=== PATIENT | male | born 1965 | race Caucasian/White ===

== ENCOUNTER 2024-05-28 13:35 | Observation (INO) | payer BC, SELFPAY ==
[2024-05-28] VITALS (7 sets, daily range): BP systolic 104–198; BP diastolic 61–108; PULSE 66–90; RESP 12–18; TEMP 36.7–37.1; O2SAT 96–99; BMI 28.3; BMI 29.2
--- NOTE | ~2024-05-28 | CT_ITS ---
EXAMINATION: CT ANGIOGRAM CHEST CLINICAL INFORMATION: Chest pain, ?dissection COMPARISON: None. TECHNIQUE: Multiple axial images were obtained through the chest after the administration of 70 mL of intravenous Omnipaque 350. Images were evaluated on independent dedicated 3-D workstation and 3-D images were reconstructed with concurrent radiologist supervision and subsequently interpreted. This CT examination was performed using dose optimization techniques as appropriate, variously including the following: *Automated exposure control *Adjustment of mA and/or kV according to patient size (this includes techniques or standardized protocols for targeted exams where dose is matched to indication/reason for exam; i.e. extremities or head) *Use of iterative reconstruction technique DLP: 397 mGy-cm FINDINGS: VASCULAR FINDINGS: Heart: Normal in size. Mild coronary artery calcifications. Aorta: Cardiac motion limits the evaluation of the aortic root and ascending thoracic aorta. Within the limitations of the study, no evidence of dissection or aneurysm of the thoracic aorta. No penetrating atheromatous ulcer. There is a three-vessel aortic arch. The origins of the arch vessels are widely patent and the vessels are normal in caliber. NONVASCULAR FINDINGS: Thyroid Gland: The visualized thyroid gland is normal. Lungs: 5 mm subpleural pulmonary nodule in the right lower lobe (5:321). 3 mm pulmonary nodule in the right lower lobe (5.277). No airspace consolidation. No suspicious nodules or masses. Airways: The trachea and central bronchi are normal. Pleura: No pleural effusion. No pneumothorax. Lymph Nodes: No supraclavicular, axillary, mediastinal or hilar lymphadenopathy is identified. Chest Wall: No chest wall mass. Upper Abdomen: The visualized upper abdomen is unremarkable. Soft Tissues/Musculoskeletal: Multilevel degenerative changes of the thoracic spine. CT/CT angio chest aorta IMPRESSION: 1. No dissection or aneurysm of the thoracic aorta. No acute finding to suggest etiology for chest pain. 2. Two sub-6 mm pulmonary nodules in the right lower lobe. According to the UPDATED 2017 Fleischner Society recommendations, the advised follow-up imaging for solid nodules <6 mm in the middle/lower lobes is no routine follow up. Fleischner guidelines were followed.
--- NOTE | 2024-05-28 13:37 | ECG_ITS ---
Test Reason : CHEST PAIN Blood Pressure : / mmHG Vent. Rate : 093 BPM Atrial Rate : 093 BPM P-R Int : 140 ms QRS Dur : 092 ms QT Int : 350 ms P-R-T Axes : 026 012 039 degrees QTc Int : 435 ms Normal sinus rhythm Normal ECG No previous ECGs available Referred By: Shaun Joseph Electronically Signed By:REZA DIAZ MD
--- NOTE | 2024-05-28 13:48 | ED_ITS ---
HPI - Chest Pain General Chief Complaint: Chest Pain Stated Complaint: CHEAT PAIN, L ARM NUMBNESS, STARTED AT 12PM Time Seen by Provider: 05/28/24 13:38 Source: patient Mode of arrival: EMS Limitations: no limitations History of Present Illness HPI narrative: This is a 59 years old with history of hypertension presented to the emergency department via ambulance with a chief complaint of chest pain he was work you experienced chest pain radiated to the left shoulder lasted few minutes , felt very anxious with that. An ambulance was called he was given aspirin nitroglycerin by the ambulance crew. At this time is chest pain-free MD complaint: chest pain Onset (ago): hour(s) (1) Prior episodes: No Onset: during rest Pain location: substernal Pain radiation: left arm Severity: mild Relieving factors: nitroglycerin Risk Factors Coronary artery disease risk factors: hypertension Related Data Allergies Allergy/AdvReac Type Severity Reaction Status Date / Time No Known Allergies Allergy Verified 05/28/24 13:46 Review of Systems 2 ENT: Reports system reviewed and no additional complaints, except as documented Cardiovascular: Cardiovascular: Reports no additional cardiovascular complaints [facility] Past Medical History [facility] Narrative: History of hypertension, former smoker quit February 2024 Social History Social History Advance Directives: No Advance Directives Information Provided: Yes Physical Exam 2 Vital Signs: Vital Signs: Last Vital Signs Temp 98.1 F 05/28/24 13:40 Pulse 71 05/28/24 16:00 Resp 12 05/28/24 16:00 BP 167/93 H 05/28/24 16:00 Pulse Ox 99 05/28/24 16:00 O2 Del Method Room Air 05/28/24 16:00 BMI result Body Mass Index 28.3 Const: General: cooperative Nutritional Appearance: well nourished O rientation/consciousness: patient oriented x3 Limitations: no limitations HEENT: Head: Yes normal to inspection Ears: hearing grossly normal bilaterally General nose exam: Normal external nose present Face and sinus: Yes normal facial exam Mouth: Normal oral and palatal mucosa present Neck: Neck: Yes normal visual inspection Chest: Chest palpation & inspection: normal inspection of the chest Resp: Effort & Inspection: normal respiratory effort Auscultation: clear to auscultation bilaterally Cardio: Jugular venous distension: no JVD Rate: regular rate Rhythm: r egular rhythm GI: Inspection: Yes normal to inspection Palpation (GI): Soft to palpation, not firm, nontender and no guarding Skin: General skin exam: no rashes or lesions noted and elasticity normal L esions: no lesions Rashes: no rashes Neuro: General: patient oriented x3 Cranial nerves: Yes CN's II-XII intact bilaterally Course Reevaluation(s) Reevaluation #1: POCUS cardiac was done by me good wall motion no pericardial effusion ascending aorta within normal limits Time: 14:02 Reevaluation #2: Patient will need repeat troponin, blood pressure is borderline high as well, I am off shift now the case will be signed out to Dr Rangel Time: 16:12 Medications Administered Discontinued Medications Generic Name Dose Route Start Last Admin Trade Name Freq PRN Reason Stop Dose Admin Iohexol 70 ml 05/28/24 16:05 05/28/24 16:05 Iohexol 350 Mg/Ml 100 Ml Infus..Btl IV 05/28/24 16:06 70 ml ONCE ONE Administration Medical Decision Making Medical Decision Making [facility] Narrative: Patient presented to ED complaining of chest pain we will obtain EKG imaging troponin Differential Diagnosis Differential Diagnoses: The differential diagnosis associated with the presentation includes ACS/dissection/musculoskeletal pain Admission/Observation Consideration of admission/observation: Escalation of care including admission/observation considered Lab Data MDM Lab Attestation statement: I reviewed the patient's lab results. 05/28/24 13:59 05/28/24 13:59 Labs: Lab Results 05/28/24 Range/Units 13:59 WBC 8.9 (4.8-10.8) X10*3/uL RBC 4.12 L (4.60-5.80) X10*6/uL Hgb 13.1 L (14.0-18.0) g/dl Hct 37.4 L (42.0-52.0) % MCV 90.8 (80.0-98.0) fL MCH 31.8 (27.0-33.0) pg MCHC 35.0 (31.0-36.0) g/dl RDW 12.1 (11.0-16.0) % Plt Count 297 (160-400) X10*3/uL MPV 9.0 L (9.4-12.4) fL Immature Gran % (Auto) 0.3 (0.0-0.4) % Neut % (Auto) 58.1 (45-73) % Lymph % (Auto) 28.3 (20-40) % [place] % (Auto) 11.7 H (2-11) % Eos % (Auto) 1.0 (0-4) % Baso % (Auto) 0.6 (0-2) % Lymph # (Auto) 2.5 (1.2-4.9) X10*3/uL [place] # (Auto) 1.0 (0.1-1.2) X10*3/uL Eos # (Auto) 0.1 (0.0-0.4) X10*3/uL Baso # (Auto) 0.1 (0.0-0.2) X10*3/uL Abs Immat Gran (auto) 0.03 (0.00-0.03) X10*3/uL Absolute Neuts (auto) 5.2 (2.0-8.3) x10*3/uL Absolute Nucleated RBC 0.000 (0.0-0.012) X10*3/uL Nucleated RBC % (auto) 0.0 (0.0-0.2) /100WBC Sodium 138 (135-145) mmol/L Potassium 3.7 (3.3-5.1) mmol/L Chloride 104 (96-108) mmol/L Carbon Dioxide 26 (22-29) mmol/L Anion Gap 12 (12-20) BUN 23 H (9-16) mg/dL Creatinine 1.12 (0.5-1.4) mg/dL Estim Creat Clear Calc 68.8 Estimated GFR > 60 Random Glucose 98 (60-115) mg/dL Calcium 9.5 (8.4-10.2) mg/dL Total Bilirubin 0.7 (0.0-1.0) mg/dL AST 24 (5-37) U/L ALT 24 (0-40) U/L Alkaline Phosphatase 48 (39-117) U/L Troponin I High Sens < 2.7 (<3.5-35.0) ng/L Total Protein 6.9 (6.5-8.0) g/dL Albumin 4.4 (3.5-5.0) g/dL Independent Interpretation I performed an independent interpretation of an: EKG Interpretation: Normal sinus rhythm no ischemic changes Independent Historian Clinical information obtained from an independent historian. History obtained from or confirmed by: EMS Chronic Conditions Patient?s care impacted by: Hypertension Discharge Plan Discharge Clinical Impression: Chest pain Qualifiers: Chest pain type: unspecified Qualified Code(s): R07.9 - Chest pain, unspecified Patient Disposition: Still a Patient Print Language: Citizen Of [place]
[2024-05-28 14:04] LABS: MANUAL DIFF FLAG NO
[2024-05-28 14:07] LABS: Basophils Absolute Auto 0.1 X10*3/uL (0.0-0.2); Basophils Percent Auto 0.6 % (0-2); Eosinophils Absolute Auto 0.1 X10*3/uL (0.0-0.4); Hematocrit 37.4 % (42.0-52.0); Hemoglobin 13.1 g/dl (14.0-18.0); Imm Gran Abs Auto 0.03 X10*3/uL (0.00-0.03); Imm Gran Pct Auto 0.3 % (0.0-0.4); Lymphocytes Absolute Auto 2.5 X10*3/uL (1.2-4.9); Lymphocytes Percent Auto 28.3 % (20-40); Mean Corpuscular Hemoglobin 31.8 pg (27.0-33.0); Mean Corpuscular Volume 90.8 fL (80.0-98.0); Monocytes Percent Auto 11.7 % (2-11); Neutrophils Absolute Auto 5.2 x10*3/uL (2.0-8.3); Neutrophils Percent Auto 58.1 % (45-73); Platelet Count 297 X10*3/uL (160-400); Red Blood Count 4.12 X10*6/uL (4.60-5.80); Red Cell Distribution Width 12.1 % (11.0-16.0); White Blood Count 8.9 X10*3/uL (4.8-10.8)
[2024-05-28 14:21] LABS: Alanine Aminotransferase 24 U/L (0-40); Albumin Level 4.4 g/dL (3.5-5.0); Alkaline Phosphatase 48 U/L (39-117); Anion Gap 12 (12-20); Aspartate Amino Transferase 24 U/L (5-37); Bilirubin Total 0.7 mg/dL (0.0-1.0); Blood Urea Nitrogen 23 mg/dL (9-16); Calcium 9.5 mg/dL (8.4-10.2); Carbon Dioxide 26 mmol/L (22-29); Chloride 104 mmol/L (96-108); Creatinine Clr Calc Pharmacy 68.8; Estimated Glomerular Filt Rate > 60; Glucose Random 98 mg/dL (60-115); Potassium 3.7 mmol/L (3.3-5.1); Sodium 138 mmol/L (135-145); Total Protein 6.9 g/dL (6.5-8.0)
[2024-05-28 14:30] LABS: Troponin-I High Sensitivity < 2.7 ng/L (<3.5-35.0)
[2024-05-28] MEDS: iohexoL 350 MG/ML 100 ML INFUS..BTL 70 ML IV (16:05)
[2024-05-28] MEDS: Metoprolol Tartrate 50 MG TABLET PO (16:33)
[2024-05-28 17:08] LABS: Troponin-I High Sensitivity < 2.7 ng/L (<3.5-35.0)
[2024-05-28] MEDS: hydrALAZINE HCl 20 MG/ML VIAL 10 MG IVPUSH (17:57)
[2024-05-28] MEDS: Nitroglycerin 2 % Oint 1 GM Packet 1 INCH TRANSDERMA (17:57)
--- NOTE | 2024-05-28 18:43 | PHA.MEDREC ---
Addendum entered by Maddie Millan RPh 05/28/24 19:15: Reviewed by [facility] Original Note: Pharmacy Consult ? Medication Reconciliation Pharmacy has completed the medication reconciliation. Spoke to patient to confirm med list. Patient states he just stopped taking Indomethacin 50 mg tid and Prednisone 10 mg taper dose yeterday.
--- NOTE | 2024-05-28 18:53 | P.HPHOSP_ITS ---
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 Subsequently patient came to the hospital patient blood pressure is in 170-198/100's : Received IV hydralazine 10 mg and p.o. metoprolol 50 mg, also given nitro patch.also got aspirin as per ems . in his arm which seems to be improved significantly after coming to the hospital. Currently feels much better, less anxiety. He says that he felt anxiety like symptoms after starting prednisone which he is taking for he is having couple of bouts of gout. He stopped prednisone yesterday. Denies any new complaint of shortness of breath or abdominal pain or fever or chills or nausea or vomiting Denies any cough Denies any weakness or numbness. Workup in the ED: EKG seems NSR no ST changes, troponin x2 negative, CTA chest negative. Social history: Patient says his both parents had MIs in their 70s. Patient also denies any history of smoking or alcohol use or recreation drug use. Admission was requested for tele monitoring for current chest tightness symptoms, blood pressure monitoring and blood pressure control. Review of Systems 2 Review of Systems: As above. Yes all other systems are reviewed and are negative [facility] Social History Advance Directives: No Advance Directives Information Provided: Yes Meds Allergies Allergy/AdvReac Type Severity Reaction Status Date / Time No Known Allergies Allergy Verified 05/28/24 13:46 Active Medications: Current Medications Acetaminophen (Acetaminophen 325 Mg Tablet) 650 mg PO Q6H PRN PRN Reason: Pain, Mild (Pain Scale 1-3), fever or headache Amlodipine Besylate (Amlodipine Besylate 10 Mg Tablet) 10 mg PO DAILY [facility]; Protocol Calcium Carbonate (Calcium Carbonate 750 Mg Tab.Chew) 750 mg PO Q4H PRN PRN Reason: Heartburn Enoxaparin Sodium (Enoxaparin Sodium 40 Mg/0.4 Ml Syringe) 40 mg SUBCUT Q24H [facility] Lisinopril (Lisinopril 20 Mg Tablet) 20 mg PO DAILY [facility]; Protocol Magnesium Hydroxide (Milk Of Magnesia 30 Ml Oral.Susp) 30 ml PO DAILY PRN PRN Reason: Constipation Magnesium Oxide (Magnesium Oxide 400 Mg Tablet) 400 mg PO DAILY [facility] Melatonin (Melatonin 3 Mg Tablet) 6 mg PO BEDTIME PRN PRN Reason: Insomnia Sodium Chloride (0.9 % Sodium Chloride Flush 3 Ml Syringe) 3 ml IVFLUSH QSHIFT [facility] Home Medications ?Medication ?Instructions ?Recorded ?Confirmed ?Last Taken ?Type lisinopril 20 mg tablet 20 mg PO DAILY 05/28/24 05/28/24 05/27/24 History magnesium oxide 400 mg PO DAILY 05/28/24 05/28/24 Unknown History Physical Exam 2 Vital Signs and Narrative: Vital Signs: Last Vital Signs Temp 98.1 F 05/28/24 13:40 Pulse 69 05/28/24 17:57 Resp 12 05/28/24 16:00 BP 198/108 H 05/28/24 17:57 Pulse Ox 99 05/28/24 16:00 O2 Del Method Room Air 05/28/24 16:00 BMI result Body Mass Index 28.3 Results Labs 05/28/24 13:59 05/28/24 13:59 Labs: Laboratory Results - last 24 hr 05/28/24 05/28/24 13:59 16:40 MCV 90.8 MCH 31.8 MCHC 35.0 RDW 12.1 Plt Count 297 MPV 9.0 L Immature Gran % (Auto) 0.3 Neut % (Auto) 58.1 Lymph % (Auto) 28.3 [place] % (Auto) 11.7 H Eos % (Auto) 1.0 Baso % (Auto) 0.6 Lymph # (Auto) 2.5 [place] # (Auto) 1.0 Eos # (Auto) 0.1 Baso # (Auto) 0.1 Abs Immat Gran (auto) 0.03 Absolute Neuts (auto) 5.2 Absolute Nucleated RBC 0.000 Nucleated RBC % (auto) 0.0 Anion Gap 12 Estim Creat Clear Calc 68.8 Estimated GFR > 60 Random Glucose 98 Calcium 9.5 Total Bilirubin 0.7 AST 24 ALT 24 Alkaline Phosphatase 48 Troponin I High Sens < 2.7 < 2.7 Total Protein 6.9 Albumin 4.4 Imaging Radiologist's Impressions: Impressions Chest CTA 05/28/24 15:52 IMPRESSION: 1. No dissection or aneurysm of the thoracic aorta. No acute finding to suggest etiology for chest pain. 2. Two sub-6 mm pulmonary nodules in the right lower lobe. According to the UPDATED 2017 Fleischner Society recommendations, the advised follow-up imaging for solid nodules <6 mm in the middle/lower lobes is no routine follow up. Fleischner guidelines were followed. 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 Chest pain:? Possible hypertension related Troponin negative, EKG NSR, CTA negative, symptoms seems improving Monitor on tele Patient received aspirin, metoprolol, nitro Cardiac evaluation Hypertension urgency: Received hydralazine, metoprolol, nitro Added amlodipine, lisinopril Monitor blood pressure closely Hyperlipidemia: Will check lipid panel Added atorvastatin Anxiety like symptoms:?Related to steroids. DVT prophylaxis: SubQ Lovenox Patient will be admitted under observation-for close blood pressure monitoring, tele monitoring, medication adjustment for blood pressure, also cardiac input for above symptoms. Patient is full code. Above management discussed with the patient detail length he understand in agreement with the above plan, time spent 70 minute. Quality Stroke Does the patient have a stroke diagnosis?: No VTE Prior VTE?: No VTE Risk Level:: Medical - moderate - high VTE Device Contraindication: N/A - Device Ordered VTE Drug Contraindication: N/A - Med Ordered
[2024-05-28] MEDS: Enoxaparin Sodium 40 MG/0.4 ML SYRINGE SUBCUT (20:11)
[2024-05-28] MEDS: Atorvastatin Calcium 20 MG TABLET PO (20:12)
[2024-05-28] MEDS: 0.9 % Sodium Chloride Flush 3 ML SYRINGE IVFLUSH (22:24)
[2024-05-29 03:46] VITALS: BP 100/52; PULSE 53; RESP 18; TEMP 36.6; O2SAT 97
[2024-05-29 06:38] LABS: Anion Gap 12 (12-20); Blood Urea Nitrogen 17 mg/dL (9-16); Calcium 9.2 mg/dL (8.4-10.2); Carbon Dioxide 25 mmol/L (22-29); Chloride 106 mmol/L (96-108); Creatinine Clr Calc Pharmacy 83.2; Estimated Glomerular Filt Rate > 60; Glucose Random 92 mg/dL (60-115); Potassium 3.9 mmol/L (3.3-5.1); Sodium 139 mmol/L (135-145)
[2024-05-29 07:26] VITALS: BP 124/77; PULSE 68; RESP 18; TEMP 36.3; O2SAT 97
[2024-05-29] MEDS: Magnesium Oxide 400 MG TABLET PO (09:12)
[2024-05-29] MEDS: lisinopriL 20 MG TABLET PO (09:12)
[2024-05-29] MEDS: 0.9 % Sodium Chloride Flush 3 ML SYRINGE IVFLUSH (09:12)
[2024-05-29] MEDS: amLODIPine Besylate 10 MG TABLET PO (09:12)
--- NOTE | 2024-05-29 10:18 | PM.CNCAR ---
History of Present Illness History of Present Illness Date of Service: 05/29/24 Requesting physician: Westley Campbell Consult reason: chest pain Chief complaint: Chest/arm burning sensation Narrative: I was consulted to see Amrit in cardiology consultation today for hypertensive urgency and chest pain. He is a pleasant 59-year-old male who since call with was seeing his primary care infrequently. He then subsequently stopped taking all his medications including his antihypertensives and statin therapy for hyperlipidemia. He has strong family history of both his parents having cardiovascular issues. He was not monitoring his blood pressure at home. Patient then recently had about a gout which caused him to have significant pain, he try to tolerated. He then subsequently started on steroid therapy after visiting urgent care and says after starting prednisone he had severe headache/fullness in his head and tingling in his left arm. He was still not measuring his blood pressure. 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 He was trying to lift a 80 lb equipment and subsequently developed severe chest pressure radiating to left arm. He therefore decided come to the emergency room. By the time he came to the emergency room he was noted to have blood pressure at 190/100. He was admitted. He was started on amlodipine in addition to lisinopril and was given labetalol. His blood pressure improved. Symptoms have improved. Troponins are negative. EKG shows nonspecific changes. Cardiology was consulted for management of his chest pain. Review of Systems Constitutional: Constitutional: Reports no additional constitutional complaints and Reports headache(s) Eyes: Eyes: Reports no additional eye complaints ENT: Reports system reviewed and no additional complaints, except as documented and Reports headache(s) Cardiovascular: Cardiovascular: Reports chest pain with activity (Lifting heavy weight), Denies leg edema, Denies lightheadedness, Denies Loss of Consciousness, Denies palpitations and Denies dyspnea Respiratory: Respiratory: Denies dyspnea Gastrointestinal: Gastrointestinal: Reports no additional gastrointestinal complaints Genitourinary: Genitourinary: Reports no additional male genitourinary complaints Musculoskeletal: Musculoskeletal: Reports no additional musculoskeletal complaints Neurologic: Reports headache(s) Psychiatric: Psychiatric: Reports no additional psychiatric complaints Endocrine: Endocrine: Denies palpitations PMFSH Social History Social History Household Members: None Housing: House Do you presently have visiting nurse or other home services: No Patient Tobacco Use Status: Former Tobacco user Tobacco use type: Cigarette Meds Allergies Allergy/AdvReac Type Severity Reaction Status Date / Time No Known Allergies Allergy Verified 05/28/24 13:46 Active Medications: Current Medications Acetaminophen (Acetaminophen 325 Mg Tablet) 650 mg PO Q6H PRN PRN Reason: Pain, Mild (Pain Scale 1-3), fever or headache Amlodipine Besylate (Amlodipine Besylate 10 Mg Tablet) 10 mg PO DAILY [facility]; Protocol Last Admin: 05/29/24 09:12 Dose: 10 mg Atorvastatin Calcium (Atorvastatin Calcium 20 Mg Tablet) 20 mg PO BEDTIME [facility] Last Admin: 05/28/24 20:12 Dose: 20 mg Calcium Carbonate (Calcium Carbonate 750 Mg Tab.Chew) 750 mg PO Q4H PRN PRN Reason: Heartburn Enoxaparin Sodium (Enoxaparin Sodium 40 Mg/0.4 Ml Syringe) 40 mg SUBCUT Q24H [facility] Last Admin: 05/28/24 20:11 Dose: 40 mg Lisinopril (Lisinopril 20 Mg Tablet) 20 mg PO DAILY [facility]; Protocol Last Admin: 05/29/24 09:12 Dose: 20 mg Magnesium Hydroxide (Milk Of Magnesia 30 Ml Oral.Susp) 30 ml PO DAILY PRN PRN Reason: Constipation Magnesium Oxide (Magnesium Oxide 400 Mg Tablet) 400 mg PO DAILY [facility] Last Admin: 05/29/24 09:12 Dose: 400 mg Melatonin (Melatonin 3 Mg Tablet) 6 mg PO BEDTIME PRN PRN Reason: Insomnia Sodium Chloride (0.9 % Sodium Chloride Flush 3 Ml Syringe) 3 ml IVFLUSH QSHIFT [facility] Last Admin: 05/29/24 09:12 Dose: 3 ml Home Medications ?Medication ?Instructions ?Recorded ?Confirmed ?Last Taken ?Type lisinopril 20 mg tablet 20 mg PO DAILY 05/28/24 05/28/24 05/27/24 History magnesium oxide 400 mg PO DAILY 05/28/24 05/28/24 Unknown History Physical Exam Vital Signs: Vital Signs: Last Vital Signs Temp 97.4 F 05/29/24 07:26 Pulse 68 05/29/24 07:26 Resp 18 05/29/24 07:26 BP 124/77 05/29/24 07:26 Pulse Ox 97 05/29/24 07:26 O2 Del Method Room Air 05/29/24 07:26 BMI result Body Mass Index 29.2 Const: General: cooperative, comfortable, no acute distress, alert, awake and Physically active Nutritional Appearance: average body habitus and well nourished Orientation/consciousness: patient oriented x3 Limitations: no limitations HEENT: Head: Yes normocephalic and Yes atraumatic Neck: Neck: Yes trachea midline, Yes supple and Yes no JVD Resp: Effort & Inspection: normal respiratory effort Auscultation: clear to auscultation bilaterally Cardio: Jugular venous distension: no JVD Palpation: normal PMI Rate: regular rate Rhythm: regular rhythm Heart sounds: S1 normal heart sound present, S2 normal heart sound present, no click, no gallops and no murmurs GI: Auscultation: normal bowel sounds Skin: General skin exam: no rashes or lesions noted Neuro: General: patient oriented x3 and no focal motor deficits Extrem: General: Yes no clubbing, cyanosis or edema Objective Labs and Meds 05/28/24 13:59 05/29/24 05:56 Lab results: Laboratory Results - last 24 hr 05/28/24 05/28/24 05/29/24 13:59 16:40 05:56 WBC 8.9 RBC 4.12 L Hgb 13.1 L Hct 37.4 L MCV 90.8 MCH 31.8 MCHC 35.0 RDW 12.1 Plt Count 297 MPV 9.0 L Immature Gran % (Auto) 0.3 Neut % (Auto) 58.1 Lymph % (Auto) 28.3 [place] % (Auto) 11.7 H Eos % (Auto) 1.0 Baso % (Auto) 0.6 Lymph # (Auto) 2.5 [place] # (Auto) 1.0 Eos # (Auto) 0.1 Baso # (Auto) 0.1 Abs Immat Gran (auto) 0.03 Absolute Neuts (auto) 5.2 Absolute Nucleated RBC 0.000 Nucleated RBC % (auto) 0.0 Hold Purple Top SEE NOTE Sodium 138 139 Potassium 3.7 3.9 Chloride 104 106 Carbon Dioxide 26 25 Anion Gap 12 12 BUN 23 H 17 H Creatinine 1.12 0.94 Estim Creat Clear Calc 68.8 83.2 Estimated GFR > 60 > 60 Random Glucose 98 92 Calcium 9.5 9.2 Total Bilirubin 0.7 AST 24 ALT 24 Alkaline Phosphatase 48 Troponin I High Sens < 2.7 < 2.7 Total Protein 6.9 Albumin 4.4 Imaging Radiologist's impression: Impressions Chest CTA 05/28/24 15:52 IMPRESSION: 1. No dissection or aneurysm of the thoracic aorta. No acute finding to suggest etiology for chest pain. 2. Two sub-6 mm pulmonary nodules in the right lower lobe. According to the UPDATED 2017 Fleischner Society recommendations, the advised follow-up imaging for solid nodules <6 mm in the middle/lower lobes is no routine follow up. Fleischner guidelines were followed. Assessment and Plan (1) Chest pain: Qualifiers: Chest pain type: unspecified Qualified Code(s): R07.9 - Chest pain, unspecified Status: Acute Patient with acute chest pain after lifting heavy weight, exertional in nature but appears to be most likely related to subendocardial strain from acute hypotension related to isometric exercise in the setting of significantly elevated baseline blood pressure. He came in with significantly elevated blood pressure which has now normalized with addition of medications. Myocardial ischemia can not be entirely ruled out although there is no clear evidence of acute coronary syndrome. Although workup can be pursued as outpatient including a stress test and echocardiogram as there is no high risk features of acute coronary syndrome at this point time. Importance of aggressively managing his blood pressure was discussed with him. Most likely reason for his blood pressure elevation is not taking his usual medications addition to recent use of steroids and significant pain related to gout. Advised to monitor blood pressure at home maintain a log. Advised to maintain adequate hydration. Avoidance of salt loading was discussed. Management of gout aggressively was discussed with him as well. Advise now that his blood pressure normalized so quickly to watch for hypotension that can develop as outpatient related to new medications. I would continue these medicines for now. Also reestablish statin therapy at atorvastatin 20 mg daily. I would suggest outpatient testing and follow-up. He also needs new primary care physician and hopefully we can establish him with 1 quickly. Will follow with him as outpatient. Thank you for allowing me to partake in his care Procedures Date of Service Date of Service: 05/29/24
[2024-05-29 11:06] VITALS: BP 120/76; PULSE 71; RESP 18; TEMP 36.6; O2SAT 95
--- NOTE | 2024-05-29 11:24 | PM.DS ---
DS: Providers Provider Date of Service: 05/29/24 Date of admission: 05/28/24 18:46 Date of discharge: 05/29/24 Primary care physician: Unknown Physician Consults: 05/28/24 18:51 Consult to Cardiology Routine Consulting Provider: [facility] Reason for consultation: chest pain Has provider been notified: No Attending physician on discharge: Westley Campbell Discharging clinician: Westley Campbell DS: Diagnosis Discharge Diagnosis (1) Chest pain: Status: Acute DS: Summary Hospital Course Hospital Course: 59-year-old male with past medical history of hypertension, hyperlipidemia-noncompliant with his meds, stopped taking them a year ago, says that he felt anxiety like symptoms as well as chest burning and arm left-sided burning 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 Subsequently patient came to the hospital patient blood pressure is in 170-198/100's : Received IV hydralazine 10 mg and p.o. metoprolol 50 mg, also given nitro patch.also got aspirin as per ems . in his arm which seems to be improved significantly after coming to the hospital. Currently feels much better, less anxiety. He says that he felt anxiety like symptoms after starting prednisone which he is taking for he is having couple of bouts of gout. He stopped prednisone yesterday. Denies any new complaint of shortness of breath or abdominal pain or fever or chills or nausea or vomiting Denies any cough Denies any weakness or numbness. Workup in the ED: EKG seems NSR no ST changes, troponin x2 negative, CTA chest negative. Social history: Patient says his both parents had MIs in their 70s. Patient also denies any history of smoking or alcohol use or recreation drug use. Admission was requested for tele monitoring for current chest tightness symptoms, blood pressure monitoring and blood pressure control. Hospital course: Patient came to the hospital because of chest tightness and hypertension urgency: Patient was given IV hydralazine, metoprolol and nitroglycerin, restarted home lisinopril, added amlodipine-blood pressure seems to be improved. Patient will be going home with lisinopril 20 mg and amlodipine 5 mg daily. Monitor blood pressure closely at home in, maintain blood pressure log. For gout patient was told to use ibuprofen rather than prednisone since patient has anxiety symptoms due to that. Also advised to avoid heavy weight pickup until cardiac workup done. Also advised for adequate hydration as well as low sodium diet. Patient is to follow-up with cardiology out patiently for further cardiac workup. Patient was strongly advised for arranging outpatient PCP appointment. Plan: Started on lisinopril 20 mg and amlodipine 5 mg daily, atorvastatin 20 mg daily-3 month supply given. Use ibuprofen p.r.n. if needed for gout. Avoid prednisone. Also advised to avoid heavy weight pickup until cardiac workup done. Also advised for adequate hydration as well as low sodium diet. Patient is to follow-up with cardiology out patiently for further cardiac workup. Patient was strongly advised for arranging outpatient PCP appointment. Above management discussed with the patient detail length he understand in agreement with the above plan, time spent 40 minutes. Time Attestation Total time managing care of this patient today: 40 mintues. Discharge Coordination Time (in mins): 40 minute Quality: Safe Use of Opioids Does Pt have an Active Cancer Diagnosis on the Problem List?: No Quality: Stroke Does the patient have a stroke diagnosis?: No Physical Exam Vital Signs: Vital Signs: Last Vital Signs Temp 97.8 F 05/29/24 11:06 Pulse 71 05/29/24 11:06 Resp 18 05/29/24 11:06 BP 120/76 05/29/24 11:06 Pulse Ox 95 05/29/24 11:06 O2 Del Method Room Air 05/29/24 11:06 BMI result Body Mass Index 29.2 Appearance: Alert.? Oriented X3.? cvs: rrr, [id number] , no murmur res: clear to auscultation ,no rhonchii or wheezing abd: no rebound or guarding ,nt, bs present. ext pulses present , no cyanosis. neuro: axo3 , nonfocal. DS: Data Data Completed and Pending Labs on day of discharge: Laboratory Results - last 24 hr 05/28/24 05/28/24 05/29/24 13:59 16:40 05:56 WBC 8.9 RBC 4.12 L Hgb 13.1 L Hct 37.4 L MCV 90.8 MCH 31.8 MCHC 35.0 RDW 12.1 Plt Count 297 MPV 9.0 L Immature Gran % (Auto) 0.3 Neut % (Auto) 58.1 Lymph % (Auto) 28.3 Childress % (Auto) 11.7 H Eos % (Auto) 1.0 Baso % (Auto) 0.6 Lymph # (Auto) 2.5 Childress # (Auto) 1.0 Eos # (Auto) 0.1 Baso # (Auto) 0.1 Abs Immat Gran (auto) 0.03 Absolute Neuts (auto) 5.2 Absolute Nucleated RBC 0.000 Nucleated RBC % (auto) 0.0 Hold Purple Top SEE NOTE Sodium 138 139 Potassium 3.7 3.9 Chloride 104 106 Carbon Dioxide 26 25 Anion Gap 12 12 BUN 23 H 17 H Creatinine 1.12 0.94 Estim Creat Clear Calc 68.8 83.2 Estimated GFR > 60 > 60 Random Glucose 98 92 Calcium 9.5 9.2 Total Bilirubin 0.7 AST 24 ALT 24 Alkaline Phosphatase 48 Troponin I High Sens < 2.7 < 2.7 Total Protein 6.9 Albumin 4.4 Imaging Chest x-ray: Radiologist's impression: ITS Impressions Chest CTA 05/28/24 15:52 IMPRESSION: 1. No dissection or aneurysm of the thoracic aorta. No acute finding to suggest etiology for chest pain. 2. Two sub-6 mm pulmonary nodules in the right lower lobe. According to the UPDATED 2017 Fleischner Society recommendations, the advised follow-up imaging for solid nodules <6 mm in the middle/lower lobes is no routine follow up. Fleischner guidelines were followed. Discharge Plan Discharge Anticipated Discharge Date/Time: 05/29/24 11:16 Patient Disposition: Home, Self-Care Discharge Diagnosis: htn urgency, chest pain Referrals: Physician,Unknown J [Primary Care Provider] - 1 Week Discharge Medications: New ibuprofen 400 mg tablet 400 mg PO Q8H PRN (Reason: pain) Qty: 14 0RF Rx Instructions: gout amlodipine 5 mg tablet 5 mg PO DAILY Qty: 90 0RF atorvastatin 20 mg Tablet 20 mg PO BEDTIME Qty: 90 0RF Continued magnesium oxide 400 mg magnesium Tablet 400 mg PO DAILY lisinopril 20 mg tablet 20 mg PO DAILY Qty: 90 0RF Discharge Orders: Discharge Order (Routine); Ordered 05/29/24 Ordered By: Westley Campbell Diet: Advance to usual diet Activity on Discharge: As tolerated Stand Alone Forms: Patient Portal Discharge page Print Language: Spanish Care Plan Goals: Patient came to the hospital because of chest tightness and hypertension urgency: Patient was given IV hydralazine, metoprolol and nitroglycerin, restarted home lisinopril, added amlodipine-blood pressure seems to be improved. Patient will be going home with lisinopril 20 mg and amlodipine 5 mg daily. Monitor blood pressure closely at home in, maintain blood pressure log. For gout patient was told to use ibuprofen rather than prednisone since patient has anxiety symptoms due to that. Also advised to avoid heavy weight pickup until cardiac workup done. Also advised for adequate hydration as well as low sodium diet. Patient is to follow-up with cardiology out patiently for further cardiac workup. Patient was strongly advised for arranging outpatient PCP appointment. Health Concerns: As above. Plan of Treatment: As above. Assessment: As above. Patient Instructions: Chest Pain (ED), Chronic Hypertension (DC)
--- NOTE | 2024-05-29 13:25 | MHC.CM.PN ---
CRISTINA 05/29. Pt lives alone at home. Pts brother will transport him home at discharge. New HCP completed, now on file. No PCP, local list given.
--- NOTE | 2024-05-29 16:08 | MHC.CM.PN ---
Pt is medically cleared for discharge home self-care, pts brother to transport him home.
== END 2024-05-29 15:23 | disposition home or self-care (01) ==
LOC: HO.ED 17:21 → HO.EDOVER 18:53 → HO.IMC 20:17
PROVIDERS: Emergency Medicine; Admitting Provider Internal Medicine; Emergency Provider Internal Medicine; Visit Provider Internal Medicine
DX: I16.0 Hypertensive urgency (principal); R07.9 Chest pain, unspecified; M79.602 Pain in left arm; I10 Essential (primary) hypertension; R91.8 Other nonspecific abnormal finding of lung field; E78.5 Hyperlipidemia, unspecified; Z91.148 Patient's other noncompliance with medication regimen for other reason
CPT/HCPCS: 36415; 71275; 80048; 80053; 84484; 85025; 93005; 96372; 96374; 99222; 99285; J0360; J1650; Q9967

== ENCOUNTER → 2024-05-28 18:46 | Outpatient (BNV) | payer BC, SELFPAY | PROVIDERS: Admitting Provider Internal Medicine; Emergency Provider Internal Medicine; Visit Provider Internal Medicine | DX: R07.9 Chest pain, unspecified (principal); I16.0 Hypertensive urgency | CPT/HCPCS: 99223; 99239 ==

== ENCOUNTER → 2024-05-28 18:46 | Outpatient (BNV) | payer BC, SELFPAY | PROVIDERS: Admitting Provider Internal Medicine; Emergency Provider Internal Medicine; Visit Provider Internal Medicine Cardiovascular Disease | DX: R07.9 Chest pain, unspecified (principal) | CPT/HCPCS: 93010; 99222 ==

== ENCOUNTER 2024-06-26 11:06 | Outpatient (AMB) | payer BC, SELFPAY ==
--- NOTE | 2024-06-26 11:20 | MHC.PC.OV ---
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 Last office visit/CPE: About 4 years Acute issue(s): Hypertension -He is on amlodipine 5 mg daily and lisinopril 20 mg daily HLD -He has not been taking atorvastatin for over a year. Atorvastatin was recently prescribed in the ED Anxiety and depression -He notes history of psychotropic medications and therapy years ago. He reports controlled mood and notes, i had to change my thinking. He notes that he generally eats and sleep well. He has not been doing routine exercise PMHx: Hypertension, hyperlipidemia, gout, anxiety, and depression SurgHx: None FHx: Dad: HTN, HLD, cardiovascular disease. PGF: Asthma, HTN, HLD, DM, cardiovascular disease SocHx: Former smoker; smoked 1 ppd x 15 yrs, quit 4 months ago. Drinks 1-2 beer once or twice monthly. No recreational drugs Last colonoscopy was 9 years ago: normal. He will obtain colonoscopy record for his PCP He has never been vaccinated for shingles He notes that his last tetanus vaccine is within the last 10 years He has not had an eye exam in several years He was recently evaluated at [facility] ED for chest pain. Cardiac workup was negative. He was admitted and discharged home the next day. He was sent home on lisinopril 20 daily, amlodipine 5 mg daily, and atorvastatin 20 mg daily. He was advised to follow-up with a PCP and Cardiology. He notes that he his chest pain started when taking Prednisone and indomethacin. He offers no complaints and denies acute symptoms at this time. He has appointments scheduled with [facility] cardiology [facility] Medical History (Updated 06/27/24 @ 13:25 by Agatha Rascon CNP) Depression Anxiety High cholesterol High blood pressure Family History (Updated 06/26/24 @ 11:49 by Lizette Turcios) Paternal Grandmother Asthma High blood pressure Mother High blood pressure High cholesterol Diabetes Cardiovascular disease Father High blood pressure High cholesterol Cardiovascular disease Social History Household Members: None Housing: House Do you presently have visiting nurse or other home services: No Patient Tobacco Use Status: Former Tobacco user Tobacco use type: Cigarette e-Cigarette/Vaping Use: Never Used Second Hand Smoke Exposure: Yes service: No Current occupational status: employed Current occupation: [employer] Current occupational exposures/hazards: Yes Cognitive needs: No Hearing needs: No Vision needs: Yes Questionnaire PHQ-9 Over the last 2 weeks, how often have you been bothered by any of the following problems? 1. Little interest or pleasure in doing things: several days 2. Feeling down, depressed, or hopeless: several days 3. Trouble falling or staying asleep, or sleeping too much: several days 4. Feeling tired or having little energy: more than half the days 5. Poor appetite or overeating: not at all 6. Feeling bad about yourself - or that you are a failure or have let yourself or your family down: several days 7. Trouble concentrating on things, such as reading the newspaper or watching television: several days 8. Moving or speaking so slowly that other people could have noticed. Or the opposite - being so fidgety or restless that you have been moving around a lot more than usual: not at all 9. Thoughts that you would be better off or of hurting yourself in some way: not at all Total score: 7 Depression Screening Interpretation: Positive Depression Screening Follow-up: Existing condition Depression Screening Done: Yes 16479 - PHQ-9 Billing: Yes Source: Developed by Drs. Edwin Duran, Rosalinda Haines, Rogers Smart and colleagues, with an educational quinten from [employer]. Thrive Questionnaire Date Thrive assessed: 06/26/24 I am a: Patient What is your living situation today?: I have a steady place to live Within the past 12 months, did the food you bought not last and you didn't have the money to get more?: Never true Within the past 12 months, did you worry whether your food would run out before you got money to buy more?: Never true Do you have trouble paying for medicines?: No Do you have trouble getting transportation to medical appointments?: No Do you have trouble paying your heating and electricity bill?: No Do you have trouble taking care of your child, family member or friend?: No Do you have trouble with day-to-day activities such as bathing, preparing meals, shopping, managing finances, etc.?: No Are you currently unemployed and looking for a job?: No Are you interested in more education?: No Please select the resources that you would like help with: None Currently or been in a relationship where the following occur: No concerns reported THRIVE Score: 0 AUDIT C Alcohol Use Questionnaire (AUDIT-C) 1. How often do you have a drink containing alcohol?: Monthly or less 2. How many drinks containing alcohol do you have on a typical day when you are drinking?: 5 or 6 3. How often do you have six or more drinks on one occasion?: Less than monthly Total Score: 4 RUSSEL-7 AMB Questionnaire RUSSEL-7 Date RUSSEL - 7 assessed: 06/26/24 Feeling nervous, anxious, or on edge: 1 = Several days Not being able to stop or control worryin = Several days Worrying too much about different things: 1 = Several days Trouble relaxin = Several days Being so restless that it is hard to sit still: 1 = Several days Becoming easily annoyed or irritable: 0 = Not at all Feeling afraid as if something awful might happen: 1 = Several days Total RUSSEL-7 score (0-4 normal; 5-9 mild; 10-14 moderate; 15-21 severe): 6 Source: Developed by Drs. Edwin Duran, Rosalinda Haines, Rogers Smart and colleagues, with an educational quinten from [employer]. RUSSEL-7 Assessment Billing RUSSEL-7 Assessment Tool: RUSSEL-7 Assessment 28450 Review of Systems Const Details: Denies chills, Denies fatigue, Denies fever(s), Denies headache(s) and Denies weakness HEENT Denies change in vision, Denies dizziness, Denies headache(s), Denies hearing loss, Denies nasal congestion, Denies sinus pain, Denies sinus pressure and Denies sore throat Card Denies chest pain, Denies lightheadedness, Denies dyspnea and Denies other (palpitations) Resp Denies cough, Denies dyspnea and Denies wheezing GI Denies abdominal pain, Denies melena, Denies hematochezia, Denies change in bowel habits, Denies dyspepsia and Denies nausea Denies hematuria and Denies dysuria Musc Denies abnormal gait, Denies myalgias, Denies arthralgias, Denies numbness and Denies tingling Skin/Breast Denies rash, Denies unusual bruising and Denies wounds Neuro Denies abnormal gait, Denies dizziness, Denies headache(s), Denies memory loss, Denies numbness, Denies Sensory deficit (Neuro), Denies tingling and Denies weakness Psych Denies anxiety, Denies depression and Denies memory loss Endo Denies cold intolerance, Denies fatigue, Denies heat intolerance, Denies polydipsia and Denies polyuria Travon/Lymph Denies easy bleeding and Denies easy bruising Aller/Immun Denies wheezing Physical exam (Primary Care) Vital Signs: Last Vital Signs Temp 97.9 F 06/26/24 11:29 Pulse 66 06/26/24 11:29 Resp 16 06/26/24 11:29 BP 110/80 06/26/24 11:29 Pulse Ox 98 06/26/24 11:29 Oxygen Delivery Method Room Air 06/26/24 11:29 BMI result Body Mass Index 27.7 Tobacco/Smoking Status: Tobacco use Status Tobacco use date assessed 06/26/24 06/26/24 11:32 Patient Tobacco Use Status Former Tobacco user 06/26/24 11:22 Tobacco use type Cigarette 06/26/24 11:22 e-Cigarette/Vaping Use Never Used 06/26/24 11:32 PHQ-9: PHQ-9 Score PHQ-9: Total score 7 06/26/24 14:10 Depression Screening Interpretation: Positive Depression Screening Follow-up: Existing condition Thrive Assessment: Date of Thrive Assessment Date Thrive assessed 06/26/24 06/26/24 11:49 Currently or been in a relationship where the following occur: No concerns reported Const Other: General: no acute distress, well developed, alert and awake Nutritional Appearance: well nourished Orientation/consciousness: patient oriented x3 [facility] Head: Yes normocephalic and Yes atraumatic Ears: hearing grossly normal bilaterally and TM's normal bilaterally General nose exam: Normal external nose present and Normal nares present Mouth: Normal oral and palatal mucosa present and moist mucous membranes Teeth and gingiva: dentition normal Throat: Yes oropharynx normal Eyes Pupils: Equal, round and reactive pupils present and Pupil accommodation reflex normal EOM: EOMs intact bilaterally Neck Neck: Yes normal visual inspection, Yes no lymphadenopathy and Yes trachea midline Thyroid: Thyroid normal Carotids: no bruits Lymphatic: no lymphadenopathy noted Chest Chest palpation & inspection: normal inspection of the chest Resp Effort & Inspection: normal respiratory effort Auscultation: clear to auscultation bilaterally Cardio Rate: regular rate Rhythm: regular rhythm Heart sounds: S1 normal heart sound present, S2 normal heart sound present, no gallops, no murmurs and no rubs Bruits: no abdominal aortic bruits and no carotid bruits GI Palpation (GI): No Abdominal aortic bruit present, Soft to palpation, nontender, No hepatosplenomegaly present and No Rebound tenderness present Auscultation: normal bowel sounds General: Yes no CVA tenderness Back/Spine/Pelvis Back: no CVA tenderness Cervical Spine: cervical ROM normal and No Cervical spine tenderness Thoracic/Lumbar Spine: thoraco-lumbar ROM normal, No pain with thoraco-lumbar ROM, No thoracic spinal tenderness and No lumbar spinal tenderness Skin General: warm and dry. Normal skin color. Normal skin turgor Lesions: no lesions Rashes: no rashes Trauma: no lacerations or abrasions Wounds: no wounds Nails: normal Neuro General: patient oriented x3, gait normal and CN's II-XI intact bilaterally Cranial nerves: Yes Equal, round and reactive pupils present Cognition (Neuro): normal cognition Gait exam (Neuro): Normal gait present Motor exam (neuro): 5/5 motor strength present throughout Sensory Exam: No Sensory deficit (Neuro) Deep tendon reflexes (DTR's): Right patellar reflex intensity grade: 2+ and Left patellar reflex intensity grade: 2+ Extrem General: Yes normal to inspection, No edema and No calf tenderness Psych Appearance: grossly normal Affect: normal affect Attitude: cooperative Thought process: Normal thought process present Assessment and Plan Assessment & Plan (1) Normal physical examination, routine: Code(s): Z00.00 - Encounter for general adult medical examination without abnormal findings Plan: No significant physical restrictions or limitations noted Continue current treatment regimen Healthy diet and routine exercise encouraged Encouraged to establish care with a dentist for routine dental care Advised to get lab work done and follow-up for a telehealth visit in 2-3 weeks for labs review Return sooner with symptoms or concerns Verbalized understanding and agreed with the treatment plan (2) Hyperlipidemia: Code(s): E78.5 - Hyperlipidemia, unspecified Qualifiers: Hyperlipidemia type: unspecified Qualified Code(s): E78.5 - Hyperlipidemia, unspecified Plan: He has not taken antilipemic medications for over a year. He notes he has been making healthy dietary choices and prefers to have lipid panel blood work done before taking medications Will check lipid panel and make changes as needed Verbalized understanding and agreed with the plan (3) High blood pressure: Code(s): I10 - Essential (primary) hypertension Qualifiers: Hypertension type: unspecified Qualified Code(s): I10 - Essential (primary) hypertension Plan: His blood pressure today is 110/80, within goal of less than 140/90 Continue current treatment regimen Low-sodium diet encouraged Will continue to monitor Verbalized understanding and agreed with the plan (4) Anxiety: Code(s): F41.9 - Anxiety disorder, unspecified Plan: Reports controlled anxiety and depressive symptoms. He has not taken psychotropic medications or had therapy in several years. He has been thinking positively. He declines medication treatment or psychotherapy at this time. PHQ-9 and RUSSEL-7 scores revealed mild depression and anxiety. Routine exercise encouraged. Advised to follow-up with symptoms or concerns. He verbalized understanding and agreed with the plan. (5) Depression: Code(s): F32.A - Depression, unspecified Qualifiers: Depression Type: unspecified Qualified Code(s): F32.A - Depression, unspecified Plan: As above (6) Vaccine counseling: Code(s): Z71.85 - Encounter for immunization safety counseling Plan: He has not been vaccinated for shingles Instructed on importance of vaccination and encouraged to get vaccinated for shingles. He may request the vaccines from his local pharmacy (7) Eye exam, routine: Code(s): Z01.00 - Encounter for examination of eyes and vision without abnormal findings Plan: He has not had an eye exam in several years Referred to [facility] ophthalmology for routine eye exam (8) Laboratory tests ordered as part of a complete physical exam (CPE): Code(s): Z00.00 - Encounter for general adult medical examination without abnormal findings Plan: Fasting labs ordered as part of a complete physical exam. Advised to fast for at least 10 hours before getting labs drawn. May drink water Verbalized understanding and agreed with treatment plan. He has recent lab results are unrevealing Orders: Orders Lipid Panel 06/26/24 E78.5 - Hyperlipidemia, unspecified TSH reflex Free T4 06/26/24 Z. - Encounter for general adult medical examination without abnormal findings Microalbumin, Random (w Creat) 06/26/24 Z. - Encounter for general adult medical examination without abnormal findings PSA, Ultra Sensitive 06/26/24 Z. - Encounter for general adult medical examination without abnormal findings UA CC w/rflx Micro + Cult 06/26/24 Z. - Encounter for general adult medical examination without abnormal findings Referrals Ophthalmology Referral Z01.00 - Encounter for examination of eyes and vision without abnormal findings Medications: Discontinued ibuprofen gout Discontinued Reason: Patient no longer taking 400 mg PO Q8H PRN 14 tabs 0RF pain omeprazole Discontinued Reason: Patient no longer taking 20 mg PO DAILY 60 caps 0RF atorvastatin Discontinued Reason: Patient no longer taking 20 mg PO BEDTIME 90 tabs 0RF Coding Level of Care Code New Pt Level 4 (51911) New Pt Prev Care 40-64y(67482) Diagnoses Normal physical examination, routine Z. Hyperlipidemia, unspecified hyperlipidemia type E78.5 Hyperlipidemia type: unspecified Hypertension, unspecified type I10 Hypertension type: unspecified Anxiety F41.9 Depression, unspecified depression type F32.A Depression Type: unspecified Vaccine counseling Z71.85 Eye exam, routine Z01. Laboratory tests ordered as part of a complete physical exam (CPE) Z00. Additional Codes RUSSEL-7 Assessment Billing - RUSSEL-7 Assessment Tool: RUSSEL-7 Assessment 25967 ([id number])
[2024-06-26 11:29] VITALS: BP 110/80; PULSE 66; RESP 16; TEMP 36.6; O2SAT 98; BMI 27.7
== END 2024-06-26 12:20 | disposition home or self-care (01) ==
PROVIDERS: PCP Nurse Practitioner Family; Visit Provider Nurse Practitioner Family
DX: Z00.00 Encounter for general adult medical examination without abnormal findings (principal); E78.5 Hyperlipidemia, unspecified; I10 Essential (primary) hypertension; F41.9 Anxiety disorder, unspecified; F32.A Depression, unspecified; Z71.85 Encounter for immunization safety counseling
CPT/HCPCS: 99386

== ENCOUNTER 2024-06-26 12:33 | Outpatient (REF) | payer BC, SELFPAY ==
[2024-06-26 14:33] LABS: Appearance Urine Clear; Color Urine Yellow; Glucose Urine UA Negative (Negative); Leukocyte Esterase Urine Negative (Negative); Nitrite Urine Negative (Negative); PH 5.5 (5.0-9.0); Specific Gravity - Urine 1.025 (1.005-1.025); Urine Blood Negative (Negative); Urine Ketones Trace mg/dL (Negative); Urine Protein Negative (Neg-Trace)
[2024-06-26 14:56] LABS: Creatinine Urine 173.87 mg/dL; Microalbum/Creatinine Ratio Ur 5.7 ug/mg cr (<30)
[2024-06-26 14:59] LABS: Cholesterol 237 mg/dL (<200); HDL Cholesterol 45 mg/dL (>40); LDL Cholesterol Calculated 171 mg/dL (<100); Triglycerides 107 mg/dL (<150)
[2024-06-26 15:16] LABS: TSH reflex Free T4 1.15 uIU/mL (0.32-4.0)
[2024-07-06 10:09] LABS: PSA, Ultra Sensitive 1.96 ng/mL
== END 2024-06-26 12:34 | disposition home or self-care (01) ==
LOC: HO.WFDLDS 12:33
PROVIDERS: Visit Provider Nurse Practitioner Family
DX: Z00.00 Encounter for general adult medical examination without abnormal findings (principal); E78.5 Hyperlipidemia, unspecified; Z12.5 Encounter for screening for malignant neoplasm of prostate
CPT/HCPCS: 36415; 80061; 81003; 82043; 82570; 84153; 84443

== ENCOUNTER → 2024-07-09 07:59 | Outpatient (REF) | payer BC, SELFPAY ==
--- NOTE | ~2024-07-09 | NM_ITS ---
EXERCISE MYOCARDIAL PERFUSION STUDY INDICATION: Chest pain TECHNIQUE: The patient was brought in for an exercise perfusion study on 07/09/2024. Patient performed exercise as per Fernando protocol and was injected 30 mCi of sestamibi once target heart rate was achieved. Images were obtained using the SPECT gamma camera interlaced with the gating device. Images were obtained in supine position. Resting perfusion study was performed on 07/10/2024. Patient was administered 30 mCi of sestamibi intravenously at rest. Images were then obtained in supine position. Total DLP 101 mGy-cm. Images were processed with the software and compared side to side in short axis, horizontal long axis and vertical long axis views. FINDINGS: Raw aquisition reviewed. The stress perfusion study showed severely reduced tracer uptake in the inferior wall. Some improvement with CT attenuation correction and could indicate components of diaphragmatic attenuation artifact. The gated study shows normal LV systolic function with calculated LVEF of 69%. LV cavity is normal in size. The gated study shows reduced inferior wall contractility. Resting study shows improved tracer uptake in the inferior wall. In the basal inferior wall, there is still reduced uptake. Overall, improved with CT attenuation correction and greater components of diaphragmatic attenuation artifact. Gating at rest reveals reduced thickening in the basal part of inferior wall. Gated LVEF 72%. The findings are consistent with severe reversible perfusion defect in the inferior wall. At the basal portion of inferior wall, some fixed components. NM/NM cardiolite stress test IMPRESSION: 1. Myocardial perfusion imaging study shows severe ischemia of the inferior wall. At the basal portion, possible infarct versus severe ischemia. 2. Gated LVEF is 69% during stress and 72% during rest. 3. Transient ischemic dilatation not present. EKG component of the test reported separately. Electronically signed by: Chirag Cisse MD 07/10/2024 03:22 PM EDT
--- NOTE | 2024-07-09 08:03 | CA_ITS ---
Transthoracic Echocardiogram Patient (Last, First, Middle): Amrit Sheehan, Gender: Male Date of : 1965 Age: 59 Procedure Date: 07/09/2024 Procedure Type: Transthoracic Echocardiogram Location: OP Height: 165.1 cm Weight: 74.84 kg BSA: 1.82 m2 Heart Rate: 64 bpm BP: 112 / [address] Worker: KEON Referring MD: Lionel Schaefer MD Road Machine Operator: Lionel Schaefer MD Symptoms: R07.9 - Chest pain, unspecified Study Quality: Adequate ECG Rhythm: Sinus Conclusions: - Essentially normal study Findings Left Ventricle Normal left ventricular size, thickness, and systolic function. The visually estimated ejection fraction is between 55-60%. Spectral Doppler is indicative of a normal filling pattern. Right Ventricle Normal right ventricular cavity size and systolic function. Atria Both atria are normal in size. There is no evidence of interatrial shunt. Aortic Valve Normal aortic valve structure and function. There is no aortic valve stenosis. There is no aortic valve regurgitation. Mitral Valve Normal mitral valve structure and function. There is trace mitral valve regurgitation. There is no mitral valve stenosis. Pulmonic Valve The pulmonic valve is likely normal. Tricuspid Valve Normal tricuspid valve structure. Tricuspid regurgitation envelope is inadequate for calculation of right ventricular systolic pressure. Normal right atrial pressure. Great Vessels All visible segments of the aorta are normal in size. The pulmonary artery was not well visualized. Venous The inferior vena cava is normal in size and collapses greater than 50% with inspiration. Pericardium/Pleural There is no evidence of pericardial effusion. Prior Study Comparison No prior study available for comparison. Measurements 2D Linear Measurements IVSd: 0.98 0.6-0.9/0.6-1.0 cm LVIDd: 4.67 3.9-5.3/4.2-5.9 cm LVIDd Index: 2.57 2.4-3.2/2.2-3.1 cm/m2 LVIDs: 2.67 2.0-3.6 cm LVPWd: 0.61 0.7-1.1 cm LA Diam: 3.50 2.7-3.8/3.0-4.0 cm LAIDs Index: 1.92 1.5-2.3 cm/m2 LV Mass: 149.21 67-162/88-224 g LV Mass Index: 81.98 43-95/49-115 g/m2 LVOT Diam: 2.20 3.0+(-)1.3 cm Mitral Valve MV Pk E: 0.74 MV PK A: 0.53 MV Decel Time: 196.00 E/A: 1.40 E'Lateral: 12.70 E'Medial: 9.03 E/E' Med: 8.20 E/E' Lat: 5.80 PHT: 57.00 MVA PHT: 3.86 Decel Kay: 3.76 Aortic Valve AoV Pk Cesar: 1.56 AoV Mn Cesar: 1.16 AoV VTI: 0.35 AoV Pk Grad: 10.00 Aov Mn Grad: 6.00 WHITLEY Cont.VTI: 2.41 LVOT LVOT Pk Cesar: 1.08 LVOT Mn Cesar: 0.70 LVOT VTI: 0.22 LVOT Pk Grad: 5.00 LVOT Mn Grad: 3.00 LVOT Diam: 2.20 LVOT Area: 3.80 Diastolic Function MV Pk E: 0.74 MV Pk A: 0.53 E/A: 1.40 E'Medial: 9.03 E/E' Med: 8.20 E' Laterial: 12.70 E/E' Lat: 5.80 Right Ventricle TAPSE (mm): 21.70 TVS' Cesar: 13.80 Tricuspid Valve RA Press: 3.00 Great Vessels Aorta Sinus of Valsalva: 2.80 2.0-3.5 cm Ao Asc: 3.20 2.1-3.4 cm Ao Arch: 2.90 Pulmonary Valve PV Pk Cesar: 1.45 Peak PV Grad: 8.00 Updated in Other Vendor System with Status of Final Lionel Schaefer MD electronically signed on 07/10/2024 1:13:54 PM with status of Final
--- NOTE | 2024-07-09 08:03 | CA_ITS ---
Acquisition Time: 2024-07-09 08:44:54 Total Exercise Time: 00:06:51 Test Indications: CP Medications: SEE H Protocol: DELVIN Max HR: 151 BPM 93% of Pred: 162 BPM Max BP: 168/068 mmHG Max Work Load: 8.2 METS Exercise stress test exercise 6 min 51 sec of Delvin protocol achieving 93% MPHR, with mild to moderate SOB, no chest discomfort, without arrhythmias, with normotensive response to exercise, with ST depressions in leads 2, aVF, V4-V6. Breathing returned to normal with rest. Nuclear images pending. Test reviewed with Dr. Schaefer Referred By: Lionel Schaefer Overread By: Ciera Bob
== END ==
LOC: HO.CARD 07:59
PROVIDERS: PCP Nurse Practitioner Family; Visit Provider Internal Medicine Cardiovascular Disease
DX: R07.9 Chest pain, unspecified (principal); I16.0 Hypertensive urgency
CPT/HCPCS: 78452; 93017; 93306; A9500

== ENCOUNTER → 2024-07-09 08:03 | Outpatient (BNV) | payer BC, SELFPAY | PROVIDERS: PCP Nurse Practitioner Family; Visit Provider Nurse Practitioner | DX: I25.5 Ischemic cardiomyopathy (principal); R07.9 Chest pain, unspecified | CPT/HCPCS: 78452; 93016; 93018; 93320; 93325; 93350 ==

== ENCOUNTER 2024-07-17 09:58 | Outpatient (AMB) | payer BC, SELFPAY ==
--- NOTE | 2024-07-17 10:11 | MHC.OFFVIS ---
Vital Signs 07/17/24 10:12 Height 5 ft 5 in Weight 168 lb BMI 28.0 BP 118/60 Blood Pressure Location Lt brachial Position Sitting Pulse 68 Pulse Source Pulse Oximeter Intake Visit Reasons: 4 wk f/u after testing [facility] Allergies No Known Allergies Allergy (Verified 06/26/24 11:49) Medication List - Last Reconciled 07/17/24 by Lionel Schaefer MD amlodipine 5 mg PO DAILY blood pressure monitor (Blood Pressure Kit) As directed lisinopril 20 mg PO DAILY HPI Comments Details: Amrit comes for follow-up after his hospitalization with chest pain with acute hypertension. Subsequent myocardial perfusion imaging shows severe inferior wall ischemia. He says since that episode he has not had any recurrent chest pain. He is back to his functional level. 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 He is taking his current blood pressure medications. While we were discussing the need for cardiac catheterization he suddenly started phasing out on me. He then got pale and stopped responding to verbal cues. We then call a rapid response and got him to a supine position. He had no pulse for brief 2nd. As soon as we laid him down he started waking up and had color returned to his face and his pulse got stronger and regular. 1 minute after laying down his blood pressure was 112/90. His heart rate was 87 beats per minute. He is completely conversation. He does not recall being moved from the chair to the examination table and laid down. He had classic vagal response to the stressful news probably. He said he had a similar response at work and that is why he had come to the emergency room although he had chest pain at that time and he had not passed out. Echocardiogram done after the stress test shows normal LV ejection fraction 55-60% without regional wall motion abnormality. EKG done stat after that she was normal sinus rhythm with T-wave inversion in lead [address] changes in AVF. No acute ST elevation or significant ST depression. [facility] Medical History (Updated 07/17/24 @ 10:39 by Lionel Schaefer MD) Hypertensive urgency Depression Anxiety High cholesterol High blood pressure Family History Paternal Grandmother Asthma High blood pressure Mother High blood pressure High cholesterol Diabetes Cardiovascular disease Father High blood pressure High cholesterol Cardiovascular disease Social History Household Members: None Housing: House Do you presently have visiting nurse or other home services: No Patient Tobacco Use Status: Former Tobacco user Tobacco use type: Cigarette e-Cigarette/Vaping Use: Never Used Second Hand Smoke Exposure: Yes service: No Current occupational status: employed Current occupation: [employer] Current occupational exposures/hazards: Yes Cognitive needs: No Hearing needs: No Vision needs: Yes Review of Systems Const Denies weakness ENT Denies dizziness Card Denies chest pain, Denies chest pain with activity, Denies syncope, Denies rapid heart rate, Denies pedal edema, Denies edema, Denies leg edema, Denies lightheadedness, Denies palpitations, Denies dyspnea, Denies dyspnea on exertion and Denies orthopnea Resp Denies cough, Denies dyspnea and Denies dyspnea on exertion GI Denies hematochezia and Denies change in stool character Musc Denies abnormal gait, Denies muscle cramps, Denies muscle weakness, Denies numbness, Denies radiating pain into limb and Denies tingling Neuro Denies abnormal gait, Denies dizziness, Denies syncope, Denies numbness, Denies tingling and Denies weakness Endo Denies palpitations Physical Exam Vital Signs: Last Vital Signs Pulse 68 07/17/24 10:12 BP 118/60 07/17/24 10:12 BMI result Body Mass Index 28.0 Const General: cooperative, comfortable, no acute distress, well developed, alert, awake and Physically active Nutritional Appearance: average body habitus and well nourished Orientation/consciousness: patient oriented x3 Limitations: no limitations Neck Neck: Yes trachea midline, Yes supple and Yes no JVD Resp Effort & Inspection: normal respiratory effort Auscultation: clear to auscultation bilaterally Cardio Jugular venous distension: no JVD Palpation: normal PMI Rate: regular rate Rhythm: regular rhythm Heart sounds: S1 normal heart sound present, S2 normal heart sound present, no click, no gallops, no murmurs and no rubs GI Auscultation: normal bowel sounds Skin General skin exam: no rashes or lesions noted Neuro General: patient oriented x3 and no focal motor deficits Extrem General: Yes no clubbing, cyanosis or edema Psych Appearance: grossly normal Office Procedures EKG Details: EKG shows normal sinus rhythm with T-wave inversion in lead [address] [place]F [id number], Complete Assessment & Plan Assessment & Plan (1) Vasovagal episode: Code(s): R55 - Syncope and collapse Category: Medical Plan: Witnessed vasovagal reaction to stressful news of needing a cardiac catheterization. Responded very quickly to changing position. He is completely back to conversation. We discussed about seeking sitting or supine position when he starts getting the symptoms of lightheadedness. Advised to increase fluid intake for now. Could be contributed by RCA disease. Will need cardiac catheterization. See below. (2) CAD (coronary artery disease): Code(s): I25.10 - Atherosclerotic heart disease of [place] coronary artery without angina pectoris Category: Medical Plan: Acute chest pain in the setting of hypertensive urgency with stress test suggestive of severe inferior wall ischemia suggestive of significant RCA stenosis. We discussed about the findings of stress test and need for further intervention. Will need cardiac catheterization to evaluate for coronary anatomy and possible RCA . Advise low-dose aspirin therapy. His LDL is significantly elevated advise high-intensity statin therapy with atorvastatin 80 mg daily target goal LDL closer to 60 mg/dL. Continue current blood pressure medication along with amlodipine and lisinopril therapy. Advised to monitor blood pressure at home maintain a log. Advised to avoid significant strenuous exertion. Possible outcomes related to cardiac catheterization was discussed including possible treatment options. (3) High blood pressure: Code(s): I10 - Essential (primary) hypertension Category: Medical Qualifiers: Hypertension type: unspecified Qualified Code(s): I10 - Essential (primary) hypertension Plan: Hypertension currently well optimized with lisinopril and amlodipine. Continue the same. Advised to maintain adequate hydration. Importance of good blood pressure control was discussed. He understands agrees. Will follow up in the clinic in 4 weeks time, sooner p.r.n.. Thank you for allowing me to partake in his care Medications: New aspirin (Ecotrin Low Strength) 81 mg PO DAILY 30 tabs 5RF atorvastatin 80 mg PO DAILY 30 tabs 5RF Coding Level of Care Code Est Pt Level 4 (77713) Diagnoses Vasovagal episode R55 CAD (coronary artery disease) I25.10 Hypertension, unspecified type I10 Hypertension type: unspecified CPT Codes EKG - CPT: 72485-[id number], Complete ([id number])
[2024-07-17 10:12] VITALS: BP 118/60; PULSE 68; BMI 28.0
== END 2024-07-17 11:11 | disposition home or self-care (01) ==
PROVIDERS: Visit Provider Internal Medicine Cardiovascular Disease
DX: R55 Syncope and collapse (principal); I25.10 Atherosclerotic heart disease of native coronary artery without angina pectoris; I10 Essential (primary) hypertension
CPT/HCPCS: 93010; 99214

== ENCOUNTER → 2024-07-17 09:58 | Outpatient (BNVA) | payer BC, SELFPAY | PROVIDERS: Visit Provider Internal Medicine Cardiovascular Disease | DX: R55 Syncope and collapse (principal); I25.10 Atherosclerotic heart disease of native coronary artery without angina pectoris; I10 Essential (primary) hypertension; Z79.899 Other long term (current) drug therapy; E78.5 Hyperlipidemia, unspecified; D64.9 Anemia, unspecified | CPT/HCPCS: 93005 ==

== ENCOUNTER → 2024-07-17 13:23 | Outpatient (AMB) | payer BC, SELFPAY ==
--- NOTE | 2024-07-17 09:32 | MHC.PC.OV ---
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: No Allergies No Known Allergies Allergy (Verified 07/17/24 14:48) Medication List - Last Reconciled 07/17/24 by Agatha Rascon CNP amlodipine 5 mg PO DAILY aspirin (Ecotrin Low Strength) 81 mg PO DAILY atorvastatin 80 mg PO DAILY blood pressure monitor (Blood Pressure Kit) As directed lisinopril 20 mg PO DAILY Tobacco use date assessed: 06/26/24 Dental Screening Dental Screen Date: 06/26/24 HPI HPI Comments History of Present Illness Details 59 year old male presents for review of recent lab results He offers no complaints and denies acute symptoms at this time [facility] Medical History (Updated 07/17/24 @ 13:31 by Agatha Rascon CNP) Hypertensive urgency Depression Anxiety High cholesterol High blood pressure Family History Paternal Grandmother Asthma High blood pressure Mother High blood pressure High cholesterol Diabetes Cardiovascular disease Father High blood pressure High cholesterol Cardiovascular disease Social History Household Members: None Housing: House Do you presently have visiting nurse or other home services: No Patient Tobacco Use Status: Former Tobacco user Tobacco use type: Cigarette e-Cigarette/Vaping Use: Never Used Second Hand Smoke Exposure: Yes service: No Current occupational status: employed Current occupation: [employer] Current occupational exposures/hazards: Yes Cognitive needs: No Hearing needs: No Vision needs: Yes Questionnaire Thrive Questionnaire Date Thrive assessed: 06/26/24 RUSSEL-7 AMB Questionnaire RUSSEL-7 Date RUSSEL - 7 assessed: 06/26/24 Source: Developed by Drs. Edwin Duran, Rosalinda Haines, Rogers Smart and colleagues, with an educational quinten from [email or web address]. Review of Systems Const Details: Const Denies chills, Denies fatigue, Denies fever(s), Denies headache(s) and Denies weakness ENT Denies dizziness and Denies headache(s) Card Denies chest pain, Denies lightheadedness, Denies dyspnea and Denies other (Palpitations) Resp Denies cough, Denies dyspnea, Denies wheezing and Denies other ( shortness of breath) GI Denies abdominal pain, Denies melena, Denies hematochezia, Denies change in bowel habits, Denies dyspepsia and Denies nausea Denies hematuria and Denies dysuria Musc Denies abnormal gait, Denies myalgias, Denies arthralgias, Denies numbness and Denies tingling Skin/Breast Denies rash, Denies unusual bruising and Denies wounds Neuro Denies abnormal gait, Denies dizziness, Denies headache(s), Denies memory loss, Denies numbness, Denies Sensory deficit (Neuro), Denies tingling and Denies weakness Endo Denies cold intolerance, Denies fatigue, Denies heat intolerance, Denies polydipsia and Denies polyuria Aller/Immun Denies wheezing Physical exam (Primary Care) Tobacco/Smoking Status: Tobacco use Status Tobacco use date assessed 06/26/24 07/17/24 09:34 Patient Tobacco Use Status Former Tobacco user 07/17/24 09:34 Tobacco use type Cigarette 07/17/24 09:34 e-Cigarette/Vaping Use Never Used 07/17/24 09:34 Thrive Assessment: Date of Thrive Assessment Date Thrive assessed 06/26/24 07/17/24 09:34 Const Other: Telehealth visit. No physical exam Telehealth Telehealth Telehealth Platform: Telephone Location of provider rendering services: practice address Location of patient: address on file Patient Identification confirmed using: Name, : Yes Telehealth method: voice only Patient verbally consented to treatment: Yes Patient verbally consented to billing insurance company: Yes Patient informed of any privacy concerns related to visit: Yes Assessment and Plan Assessment & Plan (1) Hyperlipidemia: Code(s): E78.5 - Hyperlipidemia, unspecified Qualifiers: Hyperlipidemia type: unspecified Qualified Code(s): E78.5 - Hyperlipidemia, unspecified Plan: Recent lab results reviewed with the patient. Total cholesterol and LDL levels are elevated, 237 and 171 respectively He was recently seen by cardiology and had a stress test which revealed severe cardiac ischemia. He was prescribed Atorvastatin 80mg daily Advised to continue to take Atorvastatin as prescribed Encouraged to limit foods high in saturated fat and avoid foods high in trans fat Routine exercise encouraged Follow up with cardiology as planned Advised to fast for 10-12 hours, may drink water only, and get blood work done before his next visit Return in 3 months or sooner with symptoms or concerns Verbalized understanding and agreed with the plan (2) Mild anemia: Code(s): D64.9 - Anemia, unspecified Plan: Recent RBC and H&H levels are slightly low, 4.12 and 13.1/37.4 respectively Normal MVC Chronic normocytic anemia is likely Will recheck CBC in a few months Follow-up with symptoms or concerns Verbalized understanding and agreed with the plan Orders: Orders Lipid Panel 3 Months E78.5 - Hyperlipidemia, unspecified Complete Blood Count no Diff 3 Months D64.9 - Anemia, unspecified Coding Level of Care Code Tele New Pt Level 3 (69911) Diagnoses Hyperlipidemia, unspecified hyperlipidemia type E78.5 Hyperlipidemia type: unspecified Mild anemia D64.9 Time Spent (min) 10
== END ==
LOC: HO.HMCFM 13:23
PROVIDERS: Visit Provider Nurse Practitioner Family
DX: E78.5 Hyperlipidemia, unspecified (principal); D64.9 Anemia, unspecified

== ENCOUNTER 2024-07-20 09:06 | Outpatient (REF) | payer BC, SELFPAY ==
[2024-07-20 10:14] LABS: Hematocrit 41.6 % (42.0-52.0); Mean Corpuscular HGB Conc 33.7 g/dl (31.0-36.0); Mean Corpuscular Hemoglobin 30.8 pg (27.0-33.0); Mean Corpuscular Volume 91.6 fL (80.0-98.0); Platelet Count 339 X10*3/uL (160-400); Red Blood Count 4.54 X10*6/uL (4.60-5.80); Red Cell Distribution Width 12.4 % (11.0-16.0); White Blood Count 10.5 X10*3/uL (4.8-10.8)
[2024-07-20 10:39] LABS: Anion Gap 12 (12-20); Blood Urea Nitrogen 18 mg/dL (9-16); Calcium 9.9 mg/dL (8.4-10.2); Carbon Dioxide 25 mmol/L (22-29); Chloride 102 mmol/L (96-108); Estimated Glomerular Filt Rate > 60; Glucose Random 108 mg/dL (60-115); Potassium 4.3 mmol/L (3.3-5.1); Sodium 135 mmol/L (135-145)
[2024-07-20 10:59] LABS: INTERNATIONAL NORM RATIO 0.9 (0.9-1.1); Prothrombin Time 10.1 SEC (10.9-12.4)
== END 2024-07-20 09:07 | disposition home or self-care (01) ==
LOC: HO.LAB 09:06
PROVIDERS: PCP Nurse Practitioner Family; Visit Provider Internal Medicine Cardiovascular Disease
DX: I25.10 Atherosclerotic heart disease of native coronary artery without angina pectoris (principal)
CPT/HCPCS: 36415; 80048; 85027; 85610

== ENCOUNTER → 2024-07-23 23:59 | Outpatient (BNV) | payer BC, SELFPAY | PROVIDERS: PCP Nurse Practitioner Family; Visit Provider Internal Medicine Cardiovascular Disease | DX: I20.89 Other forms of angina pectoris (principal); R93.1 Abnormal findings on diagnostic imaging of heart and coronary circulation | CPT/HCPCS: 93458; 93571; 99152 ==

== ENCOUNTER 2024-08-22 08:27 | Outpatient (AMB) | payer BC, SELFPAY ==
--- NOTE | 2024-08-22 08:31 | MHC.PC.OV ---
Vital Signs 08/22/24 08:41 Height 5 ft 5 in Weight 166 lb 8 oz BMI 27.7 BP 116/60 Blood Pressure Location Lt brachial Position Sitting Respiration 16 Pulse 62 Pulse Source Pulse Oximeter Temp 97.9 F Temp Source Oral Pulse Oximetry (%) 100 Oxygen Delivery Method Room Air Intake Visit Reasons: PostSurgery Intake Note: patient here for postsurgery Tobacco Conditioner Required: No Allergies No Known Allergies Allergy (Verified 08/22/24 08:56) Medication List - Last Reconciled 08/22/24 by Agatha Rascon CNP amiodarone 200 mg PO BID aspirin (Ecotrin Low Strength) 81 mg PO DAILY atorvastatin 80 mg PO DAILY blood pressure monitor (Blood Pressure Kit) As directed metoprolol succinate ER 12.5 mg PO BID Tobacco use date assessed: 08/22/24 Dental Screening Dental Screen Date: 08/22/24 Did you have a dental visit in the last 12 months?: No Did you have a dental problem in the last 6 months where you did not have access to dental care?: No Was dental information given to patient?: Patient declined HPI HPI Comments History of Present Illness Details 59-year-old male presents for a hospital discharge follow-up visit He had an elective cardiac catheterization at [facility] on 07/23/2024 Interventional summary: iFR LAD was significantly abnormal at 0.55. On pullback we noticed gradient in the mid and proximal segment of the LAD but not across the left main. There was dampening of pressure when we engaged the left main. We are referring the patient for CABG Recommended BLANK to LAD, graft to diagonal 1, graft to PDA and PLV Intervention or recommendations: Continue aspirin 81 mg indefinitely Aggressive secondary risk factor modification according to ATP III guidelines Referral for Cardiothoracic surgery as above Complications: None He had CABG at [facility] on 07/30/2024 and was discharged after 5 days with VNA services. He notes that his chest incisions are healing well. He will start cardiac rehab at [facility] on 09/16/2024 He denies acute symptoms at this time [facility] documentation reviewed regarding CABG x3 on 07/30/2024. Recent RBC and H&H on 08/04/2024 were low, 2.94 and 9.2/27.3 respectively. A1c was 6.0%. Coagulation studies were normal. New medications Amiodarone 200mg BID x 4 weeks for AFib prophylaxis, Aspirin 81mg daily, Metoprolol succinate 12.5 mg twice daily [facility] Medical History (Updated 08/22/24 @ 15:35 by Agatha Rascon CNP) Hypertensive urgency Depression Anxiety High cholesterol High blood pressure Family History Paternal Grandmother Asthma High blood pressure Mother High blood pressure High cholesterol Diabetes Cardiovascular disease Father High blood pressure High cholesterol Cardiovascular disease Social History Household Members: None Housing: House Do you presently have visiting nurse or other home services: No Patient Tobacco Use Status: Former Tobacco user Tobacco use type: Cigarette e-Cigarette/Vaping Use: Never Used Second Hand Smoke Exposure: Yes service: No Current occupational status: employed Current occupation: [employer] Current occupational exposures/hazards: Yes Cognitive needs: No Hearing needs: No Vision needs: Yes Questionnaire PHQ-9 Over the last 2 weeks, how often have you been bothered by any of the following problems? 1. Little interest or pleasure in doing things: not at all 2. Feeling down, depressed, or hopeless: not at all 3. Trouble falling or staying asleep, or sleeping too much: several days 4. Feeling tired or having little energy: not at all 5. Poor appetite or overeating: not at all 6. Feeling bad about yourself - or that you are a failure or have let yourself or your family down: not at all 7. Trouble concentrating on things, such as reading the newspaper or watching television: not at all 8. Moving or speaking so slowly that other people could have noticed. Or the opposite - being so fidgety or restless that you have been moving around a lot more than usual: not at all 9. Thoughts that you would be better off or of hurting yourself in some way: not at all Total score: 1 08539 - PHQ-9 Billing: Yes Source: Developed by Drs. Edwin Duran, Rosalinda Haines, Rogers Smart and colleagues, with an educational quinten from [employer]. Thrive Questionnaire Date Thrive assessed: 08/22/24 I am a: Patient What is your living situation today?: I have a steady place to live Within the past 12 months, did the food you bought not last and you didn't have the money to get more?: Never true Within the past 12 months, did you worry whether your food would run out before you got money to buy more?: Never true Do you have trouble paying for medicines?: No Do you have trouble getting transportation to medical appointments?: No Do you have trouble paying your heating and electricity bill?: No Do you have trouble taking care of your child, family member or friend?: No Do you have trouble with day-to-day activities such as bathing, preparing meals, shopping, managing finances, etc.?: No Are you currently unemployed and looking for a job?: No Are you interested in more education?: No Please select the resources that you would like help with: None Currently or been in a relationship where the following occur: No concerns reported THRIVE Score: 0 AUDIT C Alcohol Use Questionnaire (AUDIT-C) 1. How often do you have a drink containing alcohol?: Monthly or less 2. How many drinks containing alcohol do you have on a typical day when you are drinking?: 1 or 2 3. How often do you have six or more drinks on one occasion?: Never Total Score: 1 Score Reviewed/Action Taken: Yes RUSSEL-7 AMB Questionnaire RUSSEL-7 Date RUSSEL - 7 assessed: 08/22/24 Feeling nervous, anxious, or on edge: 0 = Not at all Not being able to stop or control worryin = Not at all Worrying too much about different things: 0 = Not at all Trouble relaxin = Not at all Being so restless that it is hard to sit still: 0 = Not at all Becoming easily annoyed or irritable: 0 = Not at all Feeling afraid as if something awful might happen: 0 = Not at all Total RUSSEL-7 score (0-4 normal; 5-9 mild; 10-14 moderate; 15-21 severe): 0 Source: Developed by Drs. Edwin Duran, Rosalinda Haines, Rogers Smart and colleagues, with an educational quinten from [employer]. RUSSEL-7 Assessment Billing RUSSEL-7 Assessment Tool: RUSSEL-7 Assessment 98810 Review of Systems Const Details: Const Denies chills, Denies fatigue, Denies fever(s), Denies headache(s) and Denies weakness ENT Denies dizziness and Denies headache(s) Card Denies chest pain, Denies lightheadedness, Denies dyspnea and Denies other (Palpitations) Resp Denies cough, Denies dyspnea, Denies wheezing and Denies other ( shortness of breath) GI Denies abdominal pain, Denies melena, Denies hematochezia, Denies change in bowel habits, Denies dyspepsia and Denies nausea Denies hematuria and Denies dysuria Musc Denies abnormal gait, Denies myalgias, Denies arthralgias, Denies numbness and Denies tingling Skin/Breast Reports as per HPI Neuro Denies abnormal gait, Denies dizziness, Denies headache(s), Denies memory loss, Denies numbness, Denies Sensory deficit (Neuro), Denies tingling and Denies weakness Psych Denies anxiety, Denies depression, Denies memory loss Endo Denies cold intolerance, Denies fatigue, Denies heat intolerance, Denies polydipsia and Denies polyuria Aller/Immun Denies wheezing Physical exam (Primary Care) Vital Signs: Last Vital Signs Temp 97.9 F 08/22/24 08:41 Pulse 62 08/22/24 08:41 Resp 16 08/22/24 08:41 BP 116/60 08/22/24 08:41 Pulse Ox 100 08/22/24 08:41 Oxygen Delivery Method Room Air 08/22/24 08:41 BMI result Body Mass Index 27.7 Tobacco/Smoking Status: Tobacco use Status Tobacco use date assessed 08/22/24 08/22/24 08:44 Patient Tobacco Use Status Former Tobacco user 08/22/24 08:34 Tobacco use type Cigarette 08/22/24 08:34 e-Cigarette/Vaping Use Never Used 08/22/24 08:34 PHQ-9: PHQ-9 Score PHQ-9: Total score 1 08/22/24 08:58 Thrive Assessment: Date of Thrive Assessment Date Thrive assessed 08/22/24 08/22/24 08:44 Currently or been in a relationship where the following occur: No concerns reported Const Other: General: no acute distress and well developed Nutritional Appearance: well nourished Orientation/consciousness: patient oriented x3 HENMT Head: Yes normocephalic and Yes atraumatic Eyes General: appearance normal, both eyes and all related structures Pupils: Equal, round and reactive pupils present EOM: EOMs intact bilaterally Resp Effort & Inspection: normal respiratory effort Auscultation: clear to auscultation bilaterally Cardio Rate: regular rate Rhythm: regular rhythm Heart sounds: S1 normal heart sound present, S2 normal heart sound present, no gallops, no murmurs and no rubs GI Palpation (GI): No Abdominal aortic bruit present, Soft to palpation, nontender, No hepatosplenomegaly present and No Rebound tenderness present Auscultation: normal bowel sounds General: Yes no CVA tenderness Back/Spine/Pelvis Back: no CVA tenderness Extrem General: Yes normal to inspection, No edema and No calf tenderness Skin General: warm and dry. Normal skin color. Normal skin turgor Lesions: no lesions Rashes: no rashes Trauma: no lacerations or abrasions Wounds: Surgical incisions to anterior chest are healing well. Slight erythema noted. No edema or overt infection Nails: normal Neuro General: patient oriented x3, gait normal and no focal neuro deficit Cranial nerves: Yes Equal, round and reactive pupils present Cognition (Neuro): normal cognition Gait exam (Neuro): Normal gait present Sensory Exam: No Sensory deficit (Neuro) Psych Appearance: grossly normal Affect: normal affect Attitude: cooperative Thought process: Normal thought process present Coding Level of Care Code Est Pt Level 4 (15971) Diagnoses S/P CABG x 3 Z95.1 Hospital discharge follow-up Z09 Hypertension, unspecified type I10 Hypertension type: unspecified Prediabetes R73.03 Additional Codes RUSSEL-7 Assessment Billing - RUSSEL-7 Assessment Tool: RUSSEL-7 Assessment 41937 ([id number]) Assessment & Plan Assessment & Plan (1) S/P CABG x 3: Code(s): Z95.1 - Presence of aortocoronary bypass graft Category: Surgical Plan: He had CABG at [facility] on 07/30/2024 and was discharged after 5 days with VNA services. His chest incisions are healing well. He will start cardiac rehab at [facility] on 09/16/2024 Surgical incisions to anterior chest are healing well. Slight erythema noted. No edema or overt infection. No acute symptoms Continue current treatment regimen Recent RBC and H&H on 08/04/2024 were low, 2.94 and 9.2/27.3 respectively. He has history of mild anemia. Will repeat CBC and make changes as needed. He will get blood work done tomorrow Follow-up with [facility] and for cardiac rehab as planned Follow-up for hypertension, hyperlipidemia, and mild anemia scheduled or return sooner with symptoms or concerns Verbalized understanding and agreed with the treatment plan (2) Hospital discharge follow-up: Code(s): Z09 - Encounter for follow-up examination after completed treatment for conditions other than malignant neoplasm Category: Medical Plan: Plan as above (3) High blood pressure: Code(s): I10 - Essential (primary) hypertension Category: Medical Qualifiers: Hypertension type: unspecified Qualified Code(s): I10 - Essential (primary) hypertension Plan: Blood pressure is 116/60, within goal of less than 130/80 Continue current treatment regimen Low-sodium diet encouraged Follow-up as scheduled Verbalized understanding and agreed with the plan (4) Prediabetes: Code(s): R73.03 - Prediabetes Category: Medical Plan: Recent A1c on 08/04/2024 is 6.0% Advised to limit carbs such as rice, pasta, bread, or potato Healthy diet and routine exercise encouraged Will recheck A1c in 3 months Verbalized understanding and agreed with the treatment plan Orders: Orders Complete Blood Count Auto Diff Today Z95.1 - Presence of aortocoronary bypass graft
[2024-08-22 08:41] VITALS: BP 116/60; PULSE 62; RESP 16; TEMP 36.6; O2SAT 100; BMI 27.7
== END 2024-08-22 09:59 | disposition home or self-care (01) ==
LOC: HO.HMCFM 08:28
PROVIDERS: PCP Nurse Practitioner Family; Visit Provider Nurse Practitioner Family
DX: Z95.1 Presence of aortocoronary bypass graft (principal); Z09 Encounter for follow-up examination after completed treatment for conditions other than malignant neoplasm; I10 Essential (primary) hypertension; R73.03 Prediabetes

== ENCOUNTER → 2024-08-22 08:27 | Outpatient (BNVA) | payer BC, SELFPAY | PROVIDERS: PCP Nurse Practitioner Family; Visit Provider Nurse Practitioner Family | DX: Z09 Encounter for follow-up examination after completed treatment for conditions other than malignant neoplasm (principal); I10 Essential (primary) hypertension; R73.03 Prediabetes; Z95.1 Presence of aortocoronary bypass graft; Z79.82 Long term (current) use of aspirin | CPT/HCPCS: 96127 ==

== ENCOUNTER 2024-08-23 10:22 | Outpatient (REF) | payer BC, SELFPAY ==
[2024-08-23 14:17] LABS: MANUAL DIFF FLAG NO
[2024-08-23 14:24] LABS: Basophils Absolute Auto 0.1 X10*3/uL (0.0-0.2); Basophils Percent Auto 0.7 % (0-2); Eosinophils Absolute Auto 1.1 X10*3/uL (0.0-0.4); Eosinophils Percent Auto 9.7 % (0-4); Hematocrit 37.5 % (42.0-52.0); Hemoglobin 12.3 g/dl (14.0-18.0); Imm Gran Abs Auto 0.03 X10*3/uL (0.00-0.03); Imm Gran Pct Auto 0.3 % (0.0-0.4); Lymphocytes Absolute Auto 2.6 X10*3/uL (1.2-4.9); Lymphocytes Percent Auto 23.6 % (20-40); Mean Corpuscular HGB Conc 32.8 g/dl (31.0-36.0); Mean Corpuscular Hemoglobin 30.8 pg (27.0-33.0); Monocytes Absolute Auto 0.9 X10*3/uL (0.1-1.2); Monocytes Percent Auto 8.3 % (2-11); Neutrophils Absolute Auto 6.2 x10*3/uL (2.0-8.3); Neutrophils Percent Auto 57.4 % (45-73); Platelet Count 421 X10*3/uL (160-400); Red Blood Count 3.99 X10*6/uL (4.60-5.80); Red Cell Distribution Width 13.3 % (11.0-16.0); White Blood Count 10.8 X10*3/uL (4.8-10.8)
== END 2024-08-23 10:23 | disposition home or self-care (01) ==
LOC: HO.WFDLDS 10:22
PROVIDERS: Visit Provider Nurse Practitioner Family
DX: Z95.1 Presence of aortocoronary bypass graft (principal)
CPT/HCPCS: 36415; 85025

== ENCOUNTER → 2024-09-06 08:55 | Outpatient (REF) | payer BC, SELFPAY ==
--- NOTE | 2024-09-06 08:57 | CA_ITS ---
Transthoracic Echocardiogram Patient (Last, First, Middle): Amrit Sheehan, Gender: Male Date of : 1965 Age: 59 Procedure Date: 09/06/2024 Procedure Type: Transthoracic Echocardiogram Location: OP Height: 165.1 cm Weight: 72.58 kg BSA: 1.80 m2 Heart Rate: 55 bpm BP: 116 / 60 mmHg Consulting Project Director: KEON Referring MD: Lionel Schaefer MD Symptoms: I25.10 - Atherosclerotic heart disease of [place] coronary artery without... Study Quality: Adequate ECG Rhythm: Bradycardia Conclusions: - Normal left ventricular size, thickness, and systolic function. The visually estimated ejection fraction is between 60-65%. - E/E prime ratio is between 8 and 15 consistent with indeterminate filling pressures. - Normal right ventricular cavity size. There is mild to moderately decreased right ventricular systolic function. Findings Left Ventricle Normal left ventricular size, thickness, and systolic function. The visually estimated ejection fraction is between 60-65%. There is no evidence of regional wall motion abnormalities. There is paradoxical septal motion consistent with post-operative status. Abnormal diastolic function is noted. Spectral Doppler is indicative of a pseudonormal filling pattern. E/E prime ratio is between 8 and 15 consistent with indeterminate filling pressures. Right Ventricle Normal right ventricular cavity size. There is mild to moderately decreased right ventricular systolic function. Atria Both atria are normal in size. Aortic Valve Normal aortic valve structure and function. There is no aortic valve stenosis. There is no aortic valve regurgitation. Mitral Valve The mitral valve appears normal. There is no mitral valve regurgitation. There is no mitral valve stenosis. Pulmonic Valve The pulmonic valve is normal. There is no pulmonic valve regurgitation. Tricuspid Valve Normal tricuspid valve structure. There is no tricuspid valve regurgitation. Normal right atrial pressure. There is no evidence of pulmonary hypertension. Great Vessels All visible segments of the aorta are normal in size. The visualized portions of the pulmonary artery and branches are normal. Venous The inferior vena cava is normal in size and collapses greater than 50% with inspiration. Pericardium/Pleural There is no evidence of pericardial effusion. Prior Study Comparison Changes noted compared to prior study dated: 07/09/2024. Post CABG now, abnormal septal motion due to surgery and mild to mod RV dysfunction. Measurements 2D Linear Measurements IVSd: 0.95 0.6-0.9/0.6-1.0 cm LVIDd: 4.38 3.9-5.3/4.2-5.9 cm LVIDd Index: 2.43 2.4-3.2/2.2-3.1 cm/m2 LVIDs: 3.11 2.0-3.6 cm LVPWd: 0.71 0.7-1.1 cm LA Diam: 3.20 2.7-3.8/3.0-4.0 cm LAIDs Index: 1.78 1.5-2.3 cm/m2 LV Mass: 141.21 67-162/88-224 g LV Mass Index: 78.45 43-95/49-115 g/m2 LVOT Diam: 1.90 3.0+(-)1.3 cm 2D Systolic Function EF 4C: 67.10 >55% EF 2C: 77.80 >55% EF BiP: 72.70 >55% Mitral Valve MV Pk E: 0.79 MV PK A: 0.45 MV Decel Time: 191.00 E/A: 1.70 E'Lateral: 7.40 E'Medial: 5.11 E/E' Med: 15.50 E/E' Lat: 10.70 PHT: 56.00 MVA PHT: 3.93 Decel Ripley: 4.15 Aortic Valve AoV Pk Cesar: 1.41 AoV Pk Grad: 8.00 WHITLEY: 2.70 LVOT LVOT Pk Cesar: 1.26 LVOT Mn Cesar: 0.74 LVOT VTI: 0.27 LVOT Pk Grad: 6.00 LVOT Mn Grad: 3.00 LVOT Diam: 1.90 LVOT Area: 2.84 Diastolic Function MV Pk E: 0.79 MV Pk A: 0.45 E/A: 1.70 E'Medial: 5.11 E/E' Med: 15.50 E' Laterial: 7.40 E/E' Lat: 10.70 Right Ventricle TAPSE (mm): 5.00 TVS' Cesar: 5.50 Tricuspid Valve RA Press: 3.00 Great Vessels Aorta Sinus of Valsalva: 3.20 2.0-3.5 cm Ao Asc: 3.20 2.1-3.4 cm Pulmonary Valve PV Pk Cesar: 1.13 Peak PV Grad: 5.00 Updated in Other Vendor System with Status of Final Maksim Bao MD electronically signed on 09/09/2024 8:48:57 AM with status of Final
== END ==
LOC: HO.CARD 08:55
PROVIDERS: PCP Nurse Practitioner Family; Visit Provider Internal Medicine Cardiovascular Disease
DX: I25.10 Atherosclerotic heart disease of native coronary artery without angina pectoris (principal); R07.9 Chest pain, unspecified; Z95.1 Presence of aortocoronary bypass graft
CPT/HCPCS: 93306; Q9957

== ENCOUNTER → 2024-09-06 08:57 | Outpatient (BNV) | payer BC, SELFPAY | PROVIDERS: PCP Nurse Practitioner Family; Visit Provider Internal Medicine Cardiovascular Disease | DX: I25.10 Atherosclerotic heart disease of native coronary artery without angina pectoris (principal) | CPT/HCPCS: 93306 ==

== ENCOUNTER 2024-09-27 13:36 | Outpatient (REF) | payer BC, SELFPAY ==
[2024-09-27 17:55] LABS: Hematocrit 44.5 % (42.0-52.0); Hemoglobin 14.7 g/dl (14.0-18.0); Mean Corpuscular Hemoglobin 30.6 pg (27.0-33.0); Mean Corpuscular Volume 92.7 fL (80.0-98.0); Mean Platelet Volume 9.2 fL (9.4-12.4); Platelet Count 326 X10*3/uL (160-400); Red Cell Distribution Width 13.1 % (11.0-16.0); White Blood Count 8.5 X10*3/uL (4.8-10.8)
[2024-09-27 18:05] LABS: Cholesterol 199 mg/dL (<200); HDL Cholesterol 42 mg/dL (>40); LDL Cholesterol Calculated 130 mg/dL (<100); Triglycerides 136 mg/dL (<150)
== END 2024-09-27 13:37 | disposition home or self-care (01) ==
LOC: HO.WFDLDS 13:36
PROVIDERS: Visit Provider Nurse Practitioner Family
DX: D64.9 Anemia, unspecified (principal); E78.5 Hyperlipidemia, unspecified
CPT/HCPCS: 36415; 80061; 85027

== ENCOUNTER 2024-09-30 12:39 | Outpatient (AMB) | payer BC, SELFPAY ==
[2024-09-30 12:49] VITALS: BP 112/60; PULSE 56; BMI 29.1
--- NOTE | 2024-09-30 12:49 | A.OFFVIS_ITS ---
Vital Signs 09/30/24 12:49 Height 5 ft 4 in Weight 169 lb 12.095 oz BMI 29.1 BP 112/60 Blood Pressure Location Lt brachial Position Sitting Pulse 56 Pulse Source Monitor Intake Visit Reasons: follow-up after cath and echo Allergies No Known Allergies Allergy (Verified 08/22/24 08:56) Medication List - Last Reconciled 09/30/24 by Lionel Schaefer MD aspirin (Ecotrin Low Strength) 81 mg PO DAILY atorvastatin 80 mg PO DAILY blood pressure monitor (Blood Pressure Kit) As directed metoprolol succinate ER 12.5 mg (1/2 x 25 mg) PO BID 90 days HPI Comments Details: Armit comes for follow-up. He has been doing well since his open-heart surgery. No symptoms at the wound site. No exertional chest pain. He has had no recurrent syncopal episodes. Takes all his medications. Last LDL of 130 mg/dL not well optimized. Currently off antiarrhythmic drug therapy with amiodarone. Denies any lightheadedness, syncope. No heart failure symptoms. Echocardiogram shows preserved LV ejection fraction PFSH Medical History Hypertensive urgency Depression Anxiety High cholesterol High blood pressure Surgical History (Updated 09/30/24 @ 13:19 by Lionel Schaefer MD) S/P CABG x 3 Family History Paternal Grandmother Asthma High blood pressure Mother High blood pressure High cholesterol Diabetes Cardiovascular disease Father High blood pressure High cholesterol Cardiovascular disease Social History Household Members: None Housing: House Do you presently have visiting nurse or other home services: No Patient Tobacco Use Status: Former Tobacco user Tobacco use type: Cigarette e-Cigarette/Vaping Use: Never Used Second Hand Smoke Exposure: Yes service: No Current occupational status: employed Current occupation: [employer] Current occupational exposures/hazards: Yes Cognitive needs: No Hearing needs: No Vision needs: Yes Review of Systems Const Denies weakness ENT Denies dizziness Card Denies chest pain, Denies chest pain with activity, Denies syncope, Denies rapid heart rate, Denies pedal edema, Denies edema, Denies leg edema, Denies lightheadedness, Denies palpitations, Denies dyspnea, Denies dyspnea on exertion and Denies orthopnea Resp Denies cough, Denies dyspnea and Denies dyspnea on exertion GI Denies hematochezia and Denies change in stool character Musc Denies abnormal gait, Denies muscle cramps, Denies muscle weakness, Denies numbness, Denies radiating pain into limb and Denies tingling Neuro Denies abnormal gait, Denies dizziness, Denies syncope, Denies numbness, Denies tingling and Denies weakness Endo Denies palpitations Physical Exam Vital Signs: Last Vital Signs Pulse 56 09/30/24 12:49 BP 112/60 09/30/24 12:49 BMI result Body Mass Index 29.1 Const General: cooperative, comfortable, alert, awake and Physically active Nutritional Appearance: average body habitus Orientation/consciousness: patient oriented x3 Neck Neck: Yes trachea midline, Yes supple and Yes no JVD Chest Chest palpation & inspection: other (Well healed sternotomy scar) Resp Effort & Inspection: normal respiratory effort Auscultation: clear to auscultation bilaterally Cardio Jugular venous distension: no JVD Palpation: normal PMI Rate: regular rate Rhythm: regular rhythm Heart sounds: S1 normal heart sound present, S2 normal heart sound present, no click, no gallops, no murmurs and no rubs GI Auscultation: normal bowel sounds Skin General skin exam: no rashes or lesions noted Neuro General: patient oriented x3 and no focal motor deficits Extrem General: Yes no clubbing, cyanosis or edema Psych Appearance: grossly normal Assessment & Plan Assessment & Plan (1) CAD (coronary artery disease): Code(s): I25.10 - Atherosclerotic heart disease of [place] coronary artery without angina pectoris Category: Medical Plan: Coronary artery disease status post three-vessel coronary artery bypass grafting were severe two-vessel coronary artery disease. Currently doing well from cardiac perspective. Continue aggressive medical therapy. Importance of medical therapy was discussed. His LDL is not well optimized. Will add Zetia 10 mg to his regimen follow-up lipid panel in 3 months time with target goal LDL less than 70 mg/dL. If remains on optimized consider adding PCSK9 inhibitor therapy. Continue high-intensity statin therapy. Continue aggressive blood pressure control which seems to be well optimized at this point in time. Will switch metoprolol to once a day drug. (2) Postoperative atrial fibrillation: Code(s): I97.89 - Other postprocedural complications and disorders of the circulatory system, not elsewhere classified; I48.91 - Unspecified atrial fibrillation Plan: Postoperative atrial fibrillation which is currently remained suppressed. Off amiodarone therapy. Transient in nature of postoperative atrial fibrillation noted and likelihood of recurrence is low. Continue monitor clinically. Will follow up in the clinic in 6 months time, sooner p.r.n.. Thank you for allowing me to partake in his care Coding Level of Care Code Est Pt Level 4 (85932) Complex EM visit Add On G2211 Diagnoses CAD (coronary artery disease) I25.10 Postoperative atrial fibrillation I97.89; I48.91
== END 2024-09-30 13:29 | disposition home or self-care (01) ==
PROVIDERS: PCP Nurse Practitioner Family; Visit Provider Internal Medicine Cardiovascular Disease
DX: I25.10 Atherosclerotic heart disease of native coronary artery without angina pectoris (principal); I97.89 Other postprocedural complications and disorders of the circulatory system, not elsewhere classified; I48.91 Unspecified atrial fibrillation
CPT/HCPCS: 99214

== ENCOUNTER → 2024-09-30 12:39 | Outpatient (BNVA) | payer BC, SELFPAY | PROVIDERS: PCP Nurse Practitioner Family; Visit Provider Internal Medicine Cardiovascular Disease ==

== ENCOUNTER 2024-10-01 15:42 | Outpatient (AMB) | payer BC, SELFPAY ==
--- NOTE | 2024-10-01 15:47 | MHC.PC.OV ---
Vital Signs 10/01/24 15:50 Height 5 ft 5 in Weight 168 lb 2 oz BMI 28.0 BP 120/72 Blood Pressure Location Rt brachial Position Sitting Respiration 16 Pulse 80 Pulse Source Pulse Oximeter Temp 97.3 F Temp Source Temporal Artery Scan Pulse Oximetry (%) 96 Oxygen Delivery Method Room Air Intake Visit Reasons: HLD Mild anemia/HTN Intake Note: patient here for follow up on mild anemia and HTN Allergies No Known Allergies Allergy (Verified 10/01/24 15:54) Medication List - Last Reconciled 10/01/24 by Agatha Rascon CNP aspirin (Ecotrin Low Strength) 81 mg PO DAILY atorvastatin 80 mg PO DAILY blood pressure monitor (Blood Pressure Kit) As directed ezetimibe (Zetia) 10 mg PO DAILY metoprolol succinate ER (Toprol XL) 25 mg PO DAILY Tobacco use date assessed: 10/01/24 Dental Screening Dental Screen Date: 10/01/24 Did you have a dental visit in the last 12 months?: No Did you have a dental problem in the last 6 months where you did not have access to dental care?: No Was dental information given to patient?: Patient declined HPI HPI Comments History of Present Illness Details The patient is a 59-year-old male presenting with follow-up for hypertension, hyperlipidemia, and anemia status check. The patient has a history of hypertension, which is currently managed with a blood pressure measuring 120/72 mmHg, within the target range of less than 130/80 mmHg. The patient has been managing cholesterol levels as part of hyperlipidemia treatment. Recently, Zetia 10 mg daily was prescribed by a director of athletics due to elevated cholesterol levels. Recent lipid profile shows improved values, with LDL at 130 mg/dL (down from 171 mg/dL in June), total cholesterol at 189 mg/dL (previously 237 mg/dL), and triglycerides at 136 mg/dL. LDL goal is below 100 mg/dL due to cardiac history. Anemia was noted in the past, but recent Complete Blood Count (CBC) results are normal, indicating resolved anemia. The patient is actively participating in cardiac rehabilitation, attending sessions three times per week. COUNT INCLUDES THE [facility] Medical History Hypertensive urgency Depression Anxiety High cholesterol High blood pressure Surgical History (Updated 09/30/24 @ 13:19 by Lionel Schaefer MD) S/P CABG x 3 Family History Paternal Grandmother Asthma High blood pressure Mother High blood pressure High cholesterol Diabetes Cardiovascular disease Father High blood pressure High cholesterol Cardiovascular disease Social History Household Members: None Housing: House Do you presently have visiting nurse or other home services: No Patient Tobacco Use Status: Former Tobacco user Tobacco use type: Cigarette e-Cigarette/Vaping Use: Never Used Second Hand Smoke Exposure: Yes service: No Current occupational status: employed Current occupation: [employer] Current occupational exposures/hazards: Yes Cognitive needs: No Hearing needs: No Vision needs: Yes Questionnaire Thrive Questionnaire Date Thrive assessed: 08/15/24 I am a: Patient What is your living situation today?: I have a steady place to live Within the past 12 months, did the food you bought not last and you didn't have the money to get more?: Never true Within the past 12 months, did you worry whether your food would run out before you got money to buy more?: Never true Do you have trouble paying for medicines?: No Do you have trouble getting transportation to medical appointments?: No Do you have trouble paying your heating and electricity bill?: No Do you have trouble taking care of your child, family member or friend?: No Do you have trouble with day-to-day activities such as bathing, preparing meals, shopping, managing finances, etc.?: No Are you currently unemployed and looking for a job?: No Are you interested in more education?: No Please select the resources that you would like help with: None Currently or been in a relationship where the following occur: No concerns reported THRIVE Score: 0 RUSSEL-7 AMB Questionnaire RUSSEL-7 Date RUSSEL - 7 assessed: 08/22/24 Source: Developed by Drs. Edwin Duran, Rosalinda Haines, Rogers Smart and colleagues, with an educational quinten from [employer]. Review of Systems Const Details: Const Denies chills, Denies fatigue, Denies fever(s), Denies headache(s) and Denies weakness ENT Denies dizziness and Denies headache(s) Card Denies chest pain, Denies lightheadedness, Denies dyspnea and Denies other (Palpitations) Resp Denies cough, Denies dyspnea, Denies wheezing and Denies other ( shortness of breath) GI Denies abdominal pain, Denies melena, Denies hematochezia, Denies change in bowel habits, Denies dyspepsia and Denies nausea Denies hematuria and Denies dysuria Musc Denies abnormal gait, Denies myalgias, Denies arthralgias, Denies numbness and Denies tingling Skin/Breast Denies rash, Denies unusual bruising and Denies wounds Neuro Denies abnormal gait, Denies dizziness, Denies headache(s), Denies memory loss, Denies numbness, Denies Sensory deficit (Neuro), Denies tingling and Denies weakness Psych Denies anxiety, Denies depression, Denies memory loss Endo Denies cold intolerance, Denies fatigue, Denies heat intolerance, Denies polydipsia and Denies polyuria Aller/Immun Denies wheezing Physical exam (Primary Care) Tobacco/Smoking Status: Tobacco use Status Tobacco use date assessed 08/22/24 08/22/24 08:44 Patient Tobacco Use Status Former Tobacco user 08/22/24 08:34 Tobacco use type Cigarette 08/22/24 08:34 e-Cigarette/Vaping Use Never Used 08/22/24 08:34 Thrive Assessment: Date of Thrive Assessment Date Thrive assessed 08/15/24 10/01/24 15:42 Currently or been in a relationship where the following occur: No concerns reported Const Other: General: no acute distress and well developed Nutritional Appearance: well nourished Orientation/consciousness: patient oriented x3 HENMT Head: Yes normocephalic and Yes atraumatic Eyes General: appearance normal, both eyes and all related structures Pupils: Equal, round and reactive pupils present EOM: EOMs intact bilaterally Resp Effort & Inspection: normal respiratory effort Auscultation: clear to auscultation bilaterally Cardio Rate: regular rate Rhythm: regular rhythm Heart sounds: S1 normal heart sound present, S2 normal heart sound present, no gallops, no murmurs and no rubs GI Palpation (GI): No Abdominal aortic bruit present, Soft to palpation, nontender, No hepatosplenomegaly present and No Rebound tenderness present Auscultation: normal bowel sounds General: Yes no CVA tenderness Back/Spine/Pelvis Back: no CVA tenderness Cervical Spine: cervical ROM normal and No Cervical spine tenderness Thoracic/Lumbar Spine: thoraco-lumbar ROM normal, No pain with thoraco-lumbar ROM, No thoracic spinal tenderness and No lumbar spinal tenderness Extrem General: Yes normal to inspection, No edema and No calf tenderness Skin General: warm and dry. Normal skin color. Normal skin turgor Neuro General: patient oriented x3, gait normal and no focal neuro deficit Cranial nerves: Yes Equal, round and reactive pupils present Cognition (Neuro): normal cognition Gait exam (Neuro): Normal gait present Sensory Exam: No Sensory deficit (Neuro) Psych Appearance: grossly normal Affect: normal affect Attitude: cooperative Thought process: Normal thought process present Coding Level of Care Code Est Pt Level 4 (53195) Diagnoses Hypertension, unspecified type I10 Hypertension type: unspecified Hyperlipidemia, unspecified hyperlipidemia type E78.5 Hyperlipidemia type: unspecified Mild anemia D64.9 Assessment & Plan Assessment & Plan (1) High blood pressure: Code(s): I10 - Essential (primary) hypertension Category: Medical Qualifiers: Hypertension type: unspecified Qualified Code(s): I10 - Essential (primary) hypertension Plan: Continue current management; blood pressure remains within target range. (2) Hyperlipidemia: Code(s): E78.5 - Hyperlipidemia, unspecified Category: Medical Qualifiers: Hyperlipidemia type: unspecified Qualified Code(s): E78.5 - Hyperlipidemia, unspecified Plan: Continue Zetia 10 mg daily and Atorvastatin 80 mg daily; retest lipid levels in three months. Aim for LDL levels below 100 mg/dL, ideally less than 70 mg/dL due to cardiac history. Continue attendance three times weekly; consider transitioning to a gym for ongoing exercise. (3) Mild anemia: Code(s): D64.9 - Anemia, unspecified Category: Medical Plan: No current treatment required as recent CBC is normal, indicating resolved anemia. Plan I discussed with the patient the importance of maintaining LDL levels below 100 mg/dL, possibly less than 70 mg/dL due to his cardiac history. We reviewed his current lipid profile as improved but noted the need for further reduction. I advised continuing Zetia as prescribed by his director of athletics and emphasized dietary modifications and the continuation of cardiac rehabilitation. Patient agreed to follow up with lab work two to three days before his next visit in three months. We also reviewed blood pressure management, which is currently under control, and the resolution of anemia as per recent CBC. Patient Instructions: - Continue taking Zetia 10 mg daily and Atorvastatin 80 mg daily as prescribed. - Maintain a low-salt diet and avoid processed foods. - Engage in regular exercise, continuing cardiac rehabilitation. - Schedule lipid panel blood work two to three days before the upcoming appointment in three months. - Follow up in three months for hypertension, reassessment of cholesterol and overall health. - Report any changes in health or symptoms prior to the next visit. Patient was informed and verbally consented to the use of an ambient scribe for clinic note documentation during this visit.
[2024-10-01 15:50] VITALS: BP 120/72; PULSE 80; RESP 16; TEMP 36.3; O2SAT 96; BMI 28.0
== END 2024-10-01 16:03 | disposition home or self-care (01) ==
PROVIDERS: Visit Provider Nurse Practitioner Family
DX: I10 Essential (primary) hypertension (principal); E78.5 Hyperlipidemia, unspecified; D64.9 Anemia, unspecified

== ENCOUNTER 2024-12-26 15:19 | Outpatient (REF) | payer BC, SELFPAY ==
[2024-12-26 18:19] LABS: Cholesterol 94 mg/dL (<200); HDL Cholesterol 39 mg/dL (>40); LDL Cholesterol Calculated 46 mg/dL (<100); Triglycerides 46 mg/dL (<150)
--- OUTSIDE RECORDS SUMMARY | 2024-12-26 18:48 | XMS_ITS | Clinical Summary ---
Author Organization [facility] Address [address] [place] [address] Care Team Providers Care Drying And Winding Supervisor Name Role Phone Unavailable Primary Care Provider Unavailabl e Social History Tobacco Use Types Packs/Day Years Used Date Smoking Tobacco: Never Assessed Sex and Gender Information Value Date Recorded Sex Assigned at Not on file Legal Sex Male 3:08 AM EST Gender Identity Not on file Sexual Orientation Not on file Plan of Treatment Not on file
--- OUTSIDE RECORDS SUMMARY | 2024-12-26 18:48 | XMS_ITS | Clinical Summary ---
Author Organization [employer] Address [address] [place] [address] Care Team Providers Care Child Care Lead Teacher Name Role Phone GeovanniAraceli Dowling F[facility] DRUMMER Primary Care Provider Unavailable Zakiya Pacheco Unavailable Unavailable Allergies No known active allergies Medications atorvastatin (Lipitor) 10 MG tablet TAKE 1 TABLET BY MOUTH ONCE DAILY for 90 Active amLODIPine (Norvasc) 10 MG tablet 1 tablet in the morning. Active MELATONIN PO Melatonin Active ASPIRIN ADULT LOW STRENGTH PO Aspirin Adult Low Strength Active Active Problems Problem Noted Date Diagnosed Date Hypertension 08/09/2023 08/09/2023 Hyperlipidemia 08/09/2023 08/09/2023 Insulin resistance 08/09/2023 08/09/2023 Immunizations Name Administration Dates Next Due Hep B, adult 10/11/2016,04/26/2016,03/22/2016 Influenza, IIV3, injectable 09/24/2018 MMR 04/26/2016,03/28/2016 Tdap 03/25/2013 Social History Tobacco Use Types Packs/Day Years Used Date Smoking Tobacco: Former Cigarettes Q uit: 2013 Tobacco Cessation:Counseling Given: Not Answered Sex and Gender Information Value Date Recorded Sex Assigned at Male 08/09/2023 8:37 AM EDT Legal Sex Male 8:36 PM EDT Gender Identity Male 08/09/2023 8:37 AM EDT Sexual Orientation Choose not to disclose 2022 8:37 AM EDT Last Filed Vital Signs Vital Sign Reading Time Taken Comments Blood Pressure 130/80 12/31/2019 10:30 AM EDT Pulse 76 12/31/2019 10:30 AM EDT Temperature - - Respiratory Rate - - Oxygen Saturation - - Inhaled Oxygen Concentration - - Weight 78.3 kg (172 lb 11.2 oz) 020 10:30 AM EDT Height 164.5 cm (5' 4.75 ) 12/31/2019 1 0:30 AM EDT Body Mass Index 28.96 12/31/2019 10:30 AM EDT Plan of Treatment Health Maintenance Due Date Last Done Comments CT Colonography 1966 Depression Screening 1966 FIT DNA/Cologuard 1966 FIT 1966 FOBT 1966 HIV Screening 1966 SDOH Screening 1966 Sigmoidoscopy 1966 Alcohol/Substance Use Screening 1978 Hepatitis C Screening 1984 Pneumococcal Vaccine: 50+ Years (1 of 1 - PCV) 2016 Zoster Vaccines (1 of 2) 2016 DTaP/Tdap/Td Vaccines (2 - T d or Tdap) 03/25/2023 03/25/2013 Tobacco Screening 03/26/2024 03/26/2023 COVID-19 Vaccine (2 - 2023-2 5 season) 2024 04/12/2021 Influenza Vaccine (#1) 2024 09/24/2018 Lipid Panel 07/06/2025 07/06/2020 Colonoscopy 01/21/2026 01/22/2016 Colorectal Cancer Screening 01/21/2026 RSV Patients and Patients Aged 60 years or older (1 - 1-dose 75+ series) 2041 Hepatitis B Vaccines Completed 10/11/2016, 04/26/2016, 03/22/2016 HIB Vaccines Aged Out No longer eligi ble based on patient's age to complete this topic HPV Vaccines Aged Out No longer eligi ble based on patient's age to complete this topic Hepatitis A Vaccines Aged Out No long er eligible based on patient's age to complete this topic IPV Vaccines Aged Out No longer eligi ble based on patient's age to complete this topic Meningococcal Vaccine Aged Out No joycelyn arnulfo eligible based on patient's age to complete this topic RSV under 20 months Aged Out No longe r eligible based on patient's age to complete this topic Rotavirus Vaccines Aged Out No longer eligible based on patient's age to complete this topic Procedures Procedure Name Priority Date/Time Associated Diagnosis Comments LIPID PANEL, STANDARD Routine 07/06/2020 11:37 AM EDT COLONOSCOPY Routine 01/22/2016 12:00 AM EDT from Last 3 Months or Most Recently Relevant to Health Maintenance Results * -Lipid Panel (07/06/2020 11:37 AM EDT) LDL CHOLESTEROL, CALCULATED 101 (0-130) MG/DL [facility] CHOLESTEROL, TOTAL 169 (<200) MG/DL [facility] HDL CHOL 47 (>39) MG/DL [facility] NON HDL CHOLESTEROL (CALC) 122 (<160) MG/DL [facility] TRIGLYCERIDE 107 (<150) MG/DL [facility] 07/06/2020 11:3 7 AM EDT Araceli Ward F[facility] LAB BLOOD ORDERABLES F inal Result [facility] [address] * COLONOSCOPY: [facility] (01/22/2016 12:00 AM EDT) Anatomical Region Laterality Modality Endoscopy 01/22/2016 Narrative 01/22/2016 12:00 AM EDT Refer to Fovea for result details Legacy Procedure: COLONOSCOPY: [facility] Procedure Note Provider, MD Fabien - 02/16/2023 Refer to Fovea for result details Legacy Procedure: COLONOSCOPY: [facility] Historical Provider ENDOSCOPY PROCEDURE ORDER BAO Final Result from Last 3 Months or Most Recently Relevant to Health Maintenance Insurance Care Teams Child Care Lead Teacher Relationship Specialty Start Date End Date Araceli Ward FNP PCP - General Family Medicine 02/20/23 Zakiya Pacheco Community Health Worker 02/20/23
== END 2024-12-26 15:20 | disposition home or self-care (01) ==
LOC: HO.WFDLDS 15:19
PROVIDERS: Visit Provider Internal Medicine Cardiovascular Disease
DX: I25.10 Atherosclerotic heart disease of native coronary artery without angina pectoris (principal)
CPT/HCPCS: 36415; 80061

== ENCOUNTER 2024-12-31 15:44 | Outpatient (AMB) | payer BC, SELFPAY ==
--- NOTE | 2024-12-31 15:57 | A.OFFPC_ITS ---
Vital Signs 12/31/24 16:01 12/31/24 16:21 Height 5 ft 5 in Weight 173 lb BMI 28.8 BP 138/64 130/76 Blood Pressure Location Rt brachial Rt brachial Position Sitting Sitting Respiration 16 Pulse 58 72 Pulse Source Pulse Oximeter Auscultation Temp 97.9 F Temp Source Oral Pulse Oximetry (%) 96 Oxygen Delivery Method Room Air Intake Visit Reasons: 3 mos HTN, HLD Intake Note: patient here for 3 month follow up on HTN and HLD Publications Distribution Clerk Required: No Allergies No Known Allergies Allergy (Verified 12/31/24 16:17) Medication List - Last Reconciled 12/31/24 by Agatha Rascon CNP aspirin (Ecotrin Low Strength) 81 mg PO DAILY atorvastatin 80 mg PO DAILY blood pressure monitor (Blood Pressure Kit) As directed ezetimibe (Zetia) 10 mg PO DAILY metoprolol succinate ER (Toprol XL) 25 mg PO DAILY Tobacco use date assessed: 12/31/24 Dental Screening Dental Screen Date: 12/31/24 Did you have a dental visit in the last 12 months?: No Did you have a dental problem in the last 6 months where you did not have access to dental care?: No Was dental information given to patient?: Yes HPI HPI Comments History of Present Illness Details 59-year-old male presents for hypertensi on and hyperlipidemia follow- up. He admits to taking his medications as prescribed without adverse reactions. He notes that he has been making healthy dietary choices and exercising routinely. Reports soreness to left ankle which started today. He has history of gout and notes that the pain is similar. Denies redness or swelling. [facility] Medical History (Updated 12/31/24 @ 16:31 by Agatha Rascon CNP) Hypertensive urgency Depression Anxiety High cholesterol High blood pressure Surgical History (Updated 09/30/24 @ 13:19 by Lionel Schaefer MD) S/P CABG x 3 Family History Paternal Grandmother Asthma High blood pressure Mother High blood pressure High cholesterol Diabetes Cardiovascular disease Father High blood pressure High cholesterol Cardiovascular disease Social History Household Members: None Housing: House Do you presently have visiting nurse or other home services: No Patient Tobacco Use Status: Former Tobacco user Tobacco use type: Cigarette e-Cigarette/Vaping Use: Never Used Second Hand Smoke Exposure: Yes service: No Current occupational status: employed Current occupation: [employer] Current occupational exposures/hazards: Yes Cognitive needs: No Hearing needs: No Vision needs: Yes Questionnaire PHQ-9 Over the last 2 weeks, how often have you been bothered by any of the following problems? 1. Little interest or pleasure in doing things: not at all 2. Feeling down, depressed, or hopeless: not at all 3. Trouble falling or staying asleep, or sleeping too much: not at all 4. Feeling tired or having little energy: not at all 5. Poor appetite or overeating: not at all 6. Feeling bad about yourself - or that you are a failure or have let yourself or your family down: not at all 7. Trouble concentrating on things, such as reading the newspaper or watching television: not at all 8. Moving or speaking so slowly that other people could have noticed. Or the opposite - being so fidgety or restless that you have been moving around a lot more than usual: not at all 9. Thoughts that you would be better off or of hurting yourself in some way: not at all Total score: 0 Depression Screening Interpretation: Negative Depression Screening Done: Yes Source: Developed by Drs. Edwin Duran, Rosalinda Haines, Rogers Smart and colleagues, with an educational quinten from [employer]. Thrive Questionnaire Date Thrive assessed: 08/15/24 I am a: Patient What is your living situation today?: I have a steady place to live Within the past 12 months, did the food you bought not last and you didn't have the money to get more?: Never true Within the past 12 months, did you worry whether your food would run out before you got money to buy more?: Never true Do you have trouble paying for medicines?: No Do you have trouble getting transportation to medical appointments?: No Do you have trouble paying your heating and electricity bill?: No Do you have trouble taking care of your child, family member or friend?: No Do you have trouble with day-to-day activities such as bathing, preparing meals, shopping, managing finances, etc.?: No Are you currently unemployed and looking for a job?: No Are you interested in more education?: No Please select the resources that you would like help with: None Currently or been in a relationship where the following occur: No concerns reported THRIVE Score: 0 AUDIT C Alcohol Use Questionnaire (AUDIT-C) 3. How often do you have six or more drinks on one occasion?: Never Total Score: 0 RUSSEL-7 AMB Questionnaire RUSSEL-7 Date RUSSEL - 7 assessed: 08/22/24 Feeling nervous, anxious, or on edge: 0 = Not at all Not being able to stop or control worryin = Not at all Worrying too much about different things: 0 = Not at all Trouble relaxin = Not at all Being so restless that it is hard to sit still: 0 = Not at all Becoming easily annoyed or irritable: 0 = Not at all Feeling afraid as if something awful might happen: 0 = Not at all Total RUSSEL-7 score (0-4 normal; 5-9 mild; 10-14 moderate; 15-21 severe): 0 Source: Developed by Drs. Edwin Duran, Rosalinda Haines, Rogers Smart and colleagues, with an educational quinten from [employer]. Review of Systems Const Details: Const Denies chills, Denies fatigue, Denies fever(s), Denies headache(s) and Denies weakness ENT Denies dizziness and Denies headache(s) Card Denies chest pain, Denies lightheadedness, Denies dyspnea and Denies other (Palpitations) Resp Denies cough, Denies dyspnea, Denies wheezing and Denies other ( shortness of breath) GI Denies abdominal pain, Denies melena, Denies hematochezia, Denies change in bowel habits, Denies dyspepsia and Denies nausea Denies hematuria and Denies dysuria Musc Reports left ankle pain, Denies abnormal gait, Denies numbness and Denies tingling Skin/Breast Denies rash, Denies unusual bruising and Denies wounds Neuro Denies abnormal gait, Denies dizziness, Denies headache(s), Denies memory loss, Denies numbness, Denies Sensory deficit (Neuro), Denies tingling and Denies weakness Psych Denies anxiety, Denies depression, Denies memory loss Endo Denies cold intolerance, Denies fatigue, Denies heat intolerance, Denies polydipsia and Denies polyuria Aller/Immun Denies wheezing Physical exam (Primary Care) Vital Signs: Last Vital Signs Temp 97.9 F 12/31/24 16:01 Pulse 58 12/31/24 16:01 Resp 16 12/31/24 16:01 BP 138/64 12/31/24 16:01 Pulse Ox 96 12/31/24 16:01 Oxygen Delivery Method Room Air 12/31/24 16:01 BMI result Body Mass Index 28.8 Tobacco/Smoking Status: Tobacco use Status Tobacco use date assessed 12/31/24 12/31/24 16:05 Patient Tobacco Use Status Former Tobacco user 12/31/24 15:58 Tobacco use type Cigarette 12/31/24 15:58 e-Cigarette/Vaping Use Never Used 12/31/24 15:58 PHQ-9: PHQ-9 Score PHQ-9: Total score 0 12/31/24 15:58 Depression Screening Interpretation: Negative Thrive Assessment: Date of Thrive Assessment Date Thrive assessed 08/15/24 12/31/24 15:58 Currently or been in a relationship where the following occur: No concerns reported Const Other: General: no acute distress and well developed Nutritional Appearance: well nourished Orientation/consciousness: patient oriented x3 HENMT Head: Yes normocephalic and Yes atraumatic Eyes General: appearance normal, both eyes and all related structures Pupils: Equal, round and reactive pupils present EOM: EOMs intact bilaterally Resp Effort & Inspection: normal respiratory effort Auscultation: clear to auscultation bilaterally Cardio Rate: regular rate Rhythm: regular rhythm Heart sounds: S1 normal heart sound present, S2 normal heart sound present, no gallops, no murmurs and no rubs GI Palpation (GI): No Abdominal aortic bruit present, Soft to palpation, nontender, No hepatosplenomegaly present and No Rebound tenderness present Auscultation: normal bowel sounds General: Yes no CVA tenderness Back/Spine/Pelvis Back: no CVA tenderness Cervical Spine: cervical ROM normal and No Cervical spine tenderness Thoracic/Lumbar Spine: thoraco-lumbar ROM normal, No pain with thoraco-lumbar ROM, No thoracic spinal tenderness and No lumbar spinal tenderness Extrem General: Yes normal to inspection, No edema and No calf tenderness. Left ankle with normal ROM and CMS, no erythema, edema, or overt injury or trauma Skin General: warm and dry. Normal skin color. Normal skin turgor Neuro General: patient oriented x3, gait normal and no focal neuro deficit Cranial nerves: Yes Equal, round and reactive pupils present Cognition (Neuro): normal cognition Gait exam (Neuro): Normal gait present Sensory Exam: No Sensory deficit (Neuro) Psych Appearance: grossly normal Affect: normal affect Attitude: cooperative Thought process: Normal thought process present Coding Level of Care Code Est Pt Level 4 (15077) Diagnoses Hypertension, unspecified type I10 Hypertension type: unspecified Hyperlipidemia, unspecified hyperlipidemia type E78.5 Hyperlipidemia type: unspecified Left ankle pain M25.572 Assessment & Plan Assessment & Plan (1) High blood pressure: Code(s): I10 - Essential (primary) hypertension Category: Medical Qualifiers: Hypertension type: unspecified Qualified Code(s): I10 - Essential (primary) hypertension Plan: Resting blood pressure is 130/76, slightly above goal of less than 130/80. Continue current treatment regimen. Follow-up in 3 months or sooner with symptoms or concerns. Verbalized understanding and agreed with treatment plan. (2) Hyperlipidemia: Code(s): E78.5 - Hyperlipidemia, unspecified Category: Medical Qualifiers: Hyperlipidemia type: unspecified Qualified Code(s): E78.5 - Hyperlipidemia, unspecified Plan: Recent triglyceride, total cholesterol, and HDL levels normal, 46, 94, and 46 respectively. HDL level is slightly low, 39. Continue current treatment regimen. [place] [facility] Will monitor lipid panel level every 6-12 months. Verbalized understanding and agreed with treatment plan. (3) Left ankle pain: Code(s): M25.572 - Pain in left ankle and joints of left foot Category: Medical Plan: Reports soreness to left ankle which started today and relates it to gout. Left ankle with normal ROM and CMS, no erythema, edema, or overt injury or trauma. May take ibuprofen 600 mg every 6-8 hours as needed. Warm/cool compresses encouraged. Uric acid ordered. Will review lab results and make changes as needed. Follow-up with worsening or new symptoms. Verbalized understanding and agreed with treatment plan. Orders: Orders Uric Acid Today M25.572 - Pain in left ankle and joints of left foot
[2024-12-31 16:01] VITALS: BP 138/64; PULSE 58; RESP 16; TEMP 36.6; O2SAT 96; BMI 28.8
[2024-12-31 16:21] VITALS: BP 130/76; PULSE 72
--- OUTSIDE RECORDS SUMMARY | 2024-12-31 19:06 | XMS_ITS | Clinical Summary ---
Author Organization [facility] Address [address] [place] [address] Care Team Providers Care Steam Flattener Name Role Phone Unavailable Primary Care Provider [...]
--- OUTSIDE RECORDS SUMMARY | 2024-12-31 19:06 | XMS_ITS | Clinical Summary ---
Author Organization [employer] Address [address] [place] [address] Care Team Providers Care House Wirer Helper Name Role Phone GeovanniAraceli Dowling HISTORIC SITES REGISTRAR Primary Care Provider Unavailable Zakiya Pacheco Unavailable [...] 07/06/2020 11:3 7 AM EDT Araceli Ward HISTORIC SITES REGISTRAR LAB BLOOD ORDERABLES F inal Result [facility] [address] * COLONOSCOPY: [facility] (01/22/2016 12:00 AM EDT) Anatomical Region Laterality Modality Endoscopy 01/22/2016 Narrative 01/22/2016 12:00 AM EDT Refer to Fovea for result details Legacy Procedure: COLONOSCOPY: [facility] Procedure Note Provider, MD Fabien - 02/16/2023 Refer to [facility]ovea for result details Legacy Procedure: COLONOSCOPY: [facility] Historical Provider ENDOSCOPY PROCEDURE ORDER BAO Final Result from Last 3 Months or Most Recently Relevant to Health Maintenance Insurance Care Teams House Wirer Helper Relationship Specialty Start Date End Date Araceli Ward FNP PCP - General Family Medicine 02/20/23 Zakiya Pacheco Community Health Worker 02/20/23
== END 2024-12-31 16:29 | disposition home or self-care (01) ==
PROVIDERS: Visit Provider Nurse Practitioner Family
DX: I10 Essential (primary) hypertension (principal); E78.5 Hyperlipidemia, unspecified; M25.572 Pain in left ankle and joints of left foot

== ENCOUNTER 2025-03-27 14:46 | Outpatient (AMB) | payer BC, SELFPAY ==
[2025-03-27 14:51] VITALS: BP 120/80; PULSE 86; BMI 28.6
--- NOTE | 2025-03-27 14:51 | A.OFFVIS_ITS ---
Vital Signs 03/27/25 14:51 Height 5 ft 5 in Weight 171 lb 15.369 oz BMI 28.6 BP 120/80 Blood Pressure Location Lt brachial Position Sitting Pulse 86 Intake Visit Reasons: 6 mth f/up Intake Note: 6 month follow-up feeling good Retail Sales Assistant Required: No Allergies No Known Allergies Allergy (Verified 12/31/24 16:17) Medication List - Last Reconciled 03/27/25 by Lionel Schaefer MD aspirin (Ecotrin Low Strength) 81 mg PO DAILY atorvastatin 80 mg PO DAILY blood pressure monitor (Blood Pressure Kit) As directed ezetimibe 10 mg PO DAILY metoprolol succinate ER (Toprol XL) 25 mg PO DAILY HPI Comments Details: Amrit comes for follow-up. He has been doing very well from cardiac perspective. He said he has been exercising now. He has been going to the gym. He has no exertional chest pain or shortness of breath. Denies any lightheadedness, syncope. Takes all his medications. His LDL is extremely well optimized at this point in time. [facility] Medical History Hypertensive urgency Depression Anxiety High cholesterol High blood pressure Surgical History S/P CABG x 3 Family History Paternal Grandmother Asthma High blood pressure Mother High blood pressure High cholesterol Diabetes Cardiovascular disease Father High blood pressure High cholesterol Cardiovascular disease Social History Household Members: None Housing: House Do you presently have visiting nurse or other home services: No Patient Tobacco Use Status: Former Tobacco user Tobacco use type: Cigarette e-Cigarette/Vaping Use: Never Used Second Hand Smoke Exposure: Yes service: No Current occupational status: employed Current occupation: [employer] Current occupational exposures/hazards: Yes Cognitive needs: No Hearing needs: No Vision needs: Yes Review of Systems Const Denies chills, Denies fatigue, Denies fever(s), Denies frequent falls, Denies weakness, Denies weight gain and Denies weight loss ENT Denies dizziness Card Denies chest pain, Denies leg edema, Denies lightheadedness, Denies palpitations, Denies dyspnea, Denies dyspnea on exertion, Denies orthopnea and Denies other (loss of consciousness) Resp Denies cough, Denies dyspnea and Denies dyspnea on exertion GI Denies hematochezia and Denies change in stool character Musc Denies abnormal gait, Denies muscle weakness, Denies numbness, Denies radiating pain into limb and Denies tingling Neuro Denies abnormal gait, Denies dizziness, Denies frequent falls, Denies numbness, Denies tingling and Denies weakness Endo Denies fatigue and Denies palpitations Physical Exam Vital Signs: Last Vital Signs Pulse 86 03/27/25 14:51 BP 120/80 03/27/25 14:51 BMI result Body Mass Index 28.6 Const General: cooperative, comfortable, alert, awake and Physically active Nutritional Appearance: average body habitus Orientation/consciousness: patient oriented x3 Neck Neck: Yes trachea midline, Yes supple and Yes no JVD Chest Chest palpation & inspection: other (Well healed sternotomy scar) Resp Effort & Inspection: normal respiratory effort Auscultation: clear to auscultation bilaterally Cardio Jugular venous distension: no JVD Palpation: normal PMI Rate: regular rate Rhythm: regular rhythm Heart sounds: S1 normal heart sound present, S2 normal heart sound present, no click, no gallops, no murmurs and no rubs GI Auscultation: normal bowel sounds Skin General skin exam: no rashes or lesions noted Neuro General: patient oriented x3 and no focal motor deficits Extrem General: Yes no clubbing, cyanosis or edema Psych Appearance: grossly normal Assessment & Plan Assessment & Plan (1) CAD (coronary artery disease): Code(s): I25.10 - Atherosclerotic heart disease of [place] coronary artery without angina pectoris Category: Medical Plan: CAD premature atherosclerosis with three-vessel coronary artery bypass grafting. At this point time he is doing very well from this perspective. He has had no recurrent anginal symptoms. He is currently participating in physical activity and has good functional capacity. Recommend to continue current aggressive medical therapy. Advise lifelong aspirin therapy. Continue high-intensity statin therapy along with ezetimibe therapy with target goal LDL less than 55 mg/dL currently well achieved. Continue participate in lifestyle modification. Continue metoprolol therapy. Advised to call me with any new symptoms. Will follow up in the clinic in 1 year's time, sooner p.r.n.. Thank you for allowing me to partake in his care Coding Level of Care Code Est Pt Level 4 (78458) Complex EM visit Add On G2211 Diagnoses CAD (coronary artery disease) I25.10
--- OUTSIDE RECORDS SUMMARY | 2025-03-27 17:23 | XMS_ITS | Clinical Summary ---
Author Organization [facility] Address [address] [place] [address] Care Team Providers Care Sales Lead Name Role Phone Unavailable Primary Care Provider [...]
== END 2025-03-27 15:05 | disposition home or self-care (01) ==
LOC: HO.HCS 14:47
PROVIDERS: PCP Nurse Practitioner Family; Visit Provider Internal Medicine Cardiovascular Disease
DX: I25.10 Atherosclerotic heart disease of native coronary artery without angina pectoris (principal)
CPT/HCPCS: 99214

== ENCOUNTER 2025-04-04 16:02 | Outpatient (AMB) | payer BC, SELFPAY ==
--- OUTSIDE RECORDS SUMMARY | 2025-04-04 16:04 | XMS_ITS | Clinical Summary ---
Author Organization [facility] Address [address] [place] [address] Care Team Providers Care Foreclosure Field Inspector Name Role Phone Unavailable Primary Care Provider [...]
--- NOTE | 2025-04-04 16:05 | MHC.PC.OV ---
Vital Signs 04/04/25 16:09 Height 5 ft 5 in Weight 171 lb 4 oz BMI 28.5 BP 118/76 Blood Pressure Location Lt brachial Position Sitting Respiration 16 Pulse 72 Pulse Source Pulse Oximeter Temp 98.2 F Temp Source Temporal Artery Scan Pulse Oximetry (%) 97 Oxygen Delivery Method Room Air Intake Visit Reasons: 3 mos HTN Intake Note: Amrit presents in the office today for a 3 month follow up to Hypertension. Allergies No Known Allergies Allergy (Verified 04/04/25 16:38) Medication List - Last Reconciled 04/04/25 by Agatha Rascon CNP aspirin (Ecotrin Low Strength) 81 mg PO DAILY atorvastatin 80 mg PO DAILY blood pressure monitor (Blood Pressure Kit) As directed ezetimibe 10 mg PO DAILY metoprolol succinate ER (Toprol XL) 25 mg PO DAILY Tobacco use date assessed: 04/04/25 Dental Screening Dental Screen Date: 04/04/25 Did you have a dental visit in the last 12 months?: No Did you have a dental problem in the last 6 months where you did not have access to dental care?: No Was dental information given to patient?: Patient declined HPI HPI Comments History of Present Illness Details 59-year-old male presents for hypertension follow-up. He admits to taking his medications as prescribed without adverse reactions. He notes that he has been making healthy lifestyle changes. He offers no complaints and denies acute symptoms at this time. [facility]LY [facility] Medical History Hypertensive urgency Depression Anxiety High cholesterol High blood pressure Surgical History S/P CABG x 3 Family History Paternal Grandmother Asthma High blood pressure Mother High blood pressure High cholesterol Diabetes Cardiovascular disease Father High blood pressure High cholesterol Cardiovascular disease Social History (Updated 04/04/25 @ 16:09 by Josie Steven MA) Household Members: None Housing: House Do you presently have visiting nurse or other home services: No Alcohol intake: current Alcohol intake frequency: holidays/special occasions only Patient Tobacco Use Status: Former Tobacco user Tobacco use type: Cigarette e-Cigarette/Vaping Use: Never Used Second Hand Smoke Exposure: Yes Use of substances other than those prescribed or required for medical reasons: No service: No Current occupational status: employed Current occupation: [employer] Current occupational exposures/hazards: Yes Cognitive needs: No Hearing needs: No Vision needs: Yes Questionnaire Thrive Questionnaire Date Thrive assessed: 12/24/24 I am a: Patient What is your living situation today?: I have a steady place to live Within the past 12 months, did the food you bought not last and you didn't have the money to get more?: Never true Within the past 12 months, did you worry whether your food would run out before you got money to buy more?: Never true Do you have trouble paying for medicines?: No Do you have trouble getting transportation to medical appointments?: No Do you have trouble paying your heating and electricity bill?: No Do you have trouble taking care of your child, family member or friend?: No Do you have trouble with day-to-day activities such as bathing, preparing meals, shopping, managing finances, etc.?: No Are you currently unemployed and looking for a job?: No Are you interested in more education?: No Please select the resources that you would like help with: None Currently or been in a relationship where the following occur: No concerns reported THRIVE Score: 0 URSSEL-7 AMB Questionnaire RUSSEL-7 Date RUSSEL - 7 assessed: 08/22/24 Source: Developed by Drs. Edwin Duran, Rosalinda Haines, Rogers Smart and colleagues, with an educational quinten from [employer]. Review of Systems Const Details: Const Denies chills, Denies fatigue, Denies fever(s), Denies headache(s) and Denies weakness ENT Denies dizziness and Denies headache(s) Card Denies chest pain, Denies lightheadedness, Denies dyspnea and Denies other (Palpitations) Resp Denies cough, Denies dyspnea, Denies wheezing and Denies other ( shortness of breath) GI Denies abdominal pain, Denies melena, Denies hematochezia, Denies change in bowel habits, Denies dyspepsia and Denies nausea Denies hematuria and Denies dysuria Musc Denies abnormal gait, Denies myalgias, Denies arthralgias, Denies numbness and Denies tingling Skin/Breast Denies rash, Denies unusual bruising and Denies wounds Neuro Denies abnormal gait, Denies dizziness, Denies headache(s), Denies memory loss, Denies numbness, Denies Sensory deficit (Neuro), Denies tingling and Denies weakness Psych Denies anxiety, Denies depression, Denies memory loss Endo Denies cold intolerance, Denies fatigue, Denies heat intolerance, Denies polydipsia and Denies polyuria Aller/Immun Denies wheezing Physical exam (Primary Care) Vital Signs: Last Vital Signs Temp 98.2 F 04/04/25 16:09 Pulse 72 04/04/25 16:09 Resp 16 04/04/25 16:09 BP 118/76 04/04/25 16:09 Pulse Ox 97 04/04/25 16:09 Oxygen Delivery Method Room Air 04/04/25 16:09 BMI result Body Mass Index 28.5 Tobacco/Smoking Status: Tobacco use Status Tobacco use date assessed 04/04/25 04/04/25 16:06 Patient Tobacco Use Status Former Tobacco user 04/04/25 16:09 Tobacco use type Cigarette 04/04/25 16:09 e-Cigarette/Vaping Use Never Used 04/04/25 16:09 Thrive Assessment: Date of Thrive Assessment Date Thrive assessed 12/24/24 04/04/25 16:06 Currently or been in a relationship where the following occur: No concerns reported Const Other: General: no acute distress and well developed Nutritional Appearance: well nourished Orientation/consciousness: patient oriented x3 HENMT Head: Yes normocephalic and Yes atraumatic Eyes General: appearance normal, both eyes and all related structures Pupils: Equal, round and reactive pupils present EOM: EOMs intact bilaterally Resp Effort & Inspection: normal respiratory effort Auscultation: clear to auscultation bilaterally Cardio Rate: regular rate Rhythm: regular rhythm Heart sounds: S1 normal heart sound present, S2 normal heart sound present, no gallops, no murmurs and no rubs GI Palpation (GI): No Abdominal aortic bruit present, Soft to palpation, nontender, No hepatosplenomegaly present and No Rebound tenderness present Auscultation: normal bowel sounds General: Yes no CVA tenderness Back/Spine/Pelvis Back: no CVA tenderness Cervical Spine: cervical ROM normal and No Cervical spine tenderness Thoracic/Lumbar Spine: thoraco-lumbar ROM normal, No pain with thoraco-lumbar ROM, No thoracic spinal tenderness and No lumbar spinal tenderness Extrem General: Yes normal to inspection, No edema and No calf tenderness Skin General: warm and dry. Normal skin color. Normal skin turgor Neuro General: patient oriented x3, gait normal and no focal neuro deficit Cranial nerves: Yes Equal, round and reactive pupils present Cognition (Neuro): normal cognition Gait exam (Neuro): Normal gait present Sensory Exam: No Sensory deficit (Neuro) Psych Appearance: grossly normal Affect: normal affect Attitude: cooperative Thought process: Normal thought process present Coding Level of Care Code Est Pt Level 3 (02259) Diagnoses Hypertension, unspecified type I10 Hypertension type: unspecified Assessment & Plan Assessment & Plan (1) High blood pressure: Code(s): I10 - Essential (primary) hypertension Category: Medical Qualifiers: Hypertension type: unspecified Qualified Code(s): I10 - Essential (primary) hypertension Plan: Blood pressure is 118/76, within goal of less than 130/80. Continue current treatment regimen. Low-sodium diet encouraged. Follow-up in 3 months for an extended physical exam or sooner with symptoms or concerns. Verbalized understanding and agreed with the treatment plan.
[2025-04-04 16:09] VITALS: BP 118/76; PULSE 72; RESP 16; TEMP 36.8; O2SAT 97; BMI 28.5
== END 2025-04-04 16:45 | disposition home or self-care (01) ==
LOC: HO.HMCFM 16:03
PROVIDERS: Visit Provider Nurse Practitioner Family
DX: I10 Essential (primary) hypertension (principal)

== ENCOUNTER → 2025-04-04 16:02 | Outpatient (BNVA) | payer BC, SELFPAY | PROVIDERS: Visit Provider Nurse Practitioner Family ==

== ENCOUNTER 2025-06-30 15:19 | Outpatient (AMB) | payer BC, SELFPAY ==
--- NOTE | 2025-06-30 15:22 | MHC.PC.OV ---
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 Allergies No Known Allergies Allergy (Verified 06/30/25 15:42) Medication List - Last Reconciled 06/30/25 by Agatha Rascon CNP aspirin (Ecotrin Low Strength) 81 mg PO DAILY atorvastatin 80 mg PO DAILY blood pressure monitor (Blood Pressure Kit) As directed ezetimibe 10 mg PO DAILY metoprolol succinate ER (Toprol XL) 25 mg PO DAILY Tobacco use date assessed: 06/30/25 Dental Screening Dental Screen Date: 06/30/25 Did you have a dental visit in the last 12 months?: No Did you have a dental problem in the last 6 months where you did not have access to dental care?: No Was dental information given to patient?: No HPI HPI Comments History of Present Illness Details 60-year-old male presents for an extended physical exam. He admits to taking his medications as prescribed without adverse reactions. Acute issue(s) - None Past Medical History - Hypertension, hyperlipidemia, gout, anxiety, and depression Social History - Former smoker, smoked 1ppd on/off x 30 years, quit 02/2024. Does not vape. Drinks 2-4 beers occasionally/twice monthly. Denies recreational drug use - Has been making healthy dietary choices. Exercises routinely. Generally sleep well Health maintenance - Last eye exam was at childhood. Unsure whether or not he has eye coverage; he will find out and inform PCP - Last dental visit was over 10 years ago; encouraged to schedule an appointment with his dentist for routine dental care - Last tetanus vaccine status unknown; received Tdap vaccine today - Has not been vaccinated for shingles - Has not been vaccinated for the flu this season; declines vaccination - Last colonoscopy was 10 years ago: normal. 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 [facility] Medical History Hypertensive urgency Depression Anxiety High cholesterol High blood pressure Surgical History S/P CABG x 3 Family History Paternal Grandmother Asthma High blood pressure Mother High blood pressure High cholesterol Diabetes Cardiovascular disease Father High blood pressure High cholesterol Cardiovascular disease Social History Household Members: None Housing: House Do you presently have visiting nurse or other home services: No Alcohol intake: current Alcohol intake frequency: holidays/special occasions only Patient Tobacco Use Status: Former Tobacco user Tobacco use type: Cigarette e-Cigarette/Vaping Use: Never Used Second Hand Smoke Exposure: Yes service: No Current occupational status: employed Current occupation: [employer] Current occupational exposures/hazards: Yes Cognitive needs: No Hearing needs: No Vision needs: Yes Questionnaire PHQ-9 Over the last 2 weeks, how often have you been bothered by any of the following problems? 1. Little interest or pleasure in doing things: not at all 2. Feeling down, depressed, or hopeless: not at all 3. Trouble falling or staying asleep, or sleeping too much: several days 4. Feeling tired or having little energy: not at all 5. Poor appetite or overeating: not at all 6. Feeling bad about yourself - or that you are a failure or have let yourself or your family down: not at all 7. Trouble concentrating on things, such as reading the newspaper or watching television: not at all 8. Moving or speaking so slowly that other people could have noticed. Or the opposite - being so fidgety or restless that you have been moving around a lot more than usual: not at all 9. Thoughts that you would be better off or of hurting yourself in some way: not at all Total score: 1 Depression Screening Interpretation: Negative Depression Screening Done: Yes 23108 - PHQ-9 Billing: Yes Source: Developed by Drs. Edwin Duran, Rosalinda Haines, Rogers Smart and colleagues, with an educational quinten from [employer]. Thrive Questionnaire Date Thrive assessed: 06/30/25 I am a: Patient What is your living situation today?: I have a steady place to live Within the past 12 months, did the food you bought not last and you didn't have the money to get more?: Never true Within the past 12 months, did you worry whether your food would run out before you got money to buy more?: Never true Do you have trouble paying for medicines?: No Do you have trouble getting transportation to medical appointments?: No Do you have trouble paying your heating and electricity bill?: No Do you have trouble taking care of your child, family member or friend?: No Do you have trouble with day-to-day activities such as bathing, preparing meals, shopping, managing finances, etc.?: No Are you currently unemployed and looking for a job?: No Are you interested in more education?: No Please select the resources that you would like help with: None Currently or been in a relationship where the following occur: No concerns reported THRIVE Score: 0 AUDIT C Alcohol Use Questionnaire (AUDIT-C) 1. How often do you have a drink containing alcohol?: Monthly or less 2. How many drinks containing alcohol do you have on a typical day when you are drinking?: 3 or 4 3. How often do you have six or more drinks on one occasion?: Less than monthly Total Score: 3 Score Reviewed/Action Taken: Yes RUSSEL-7 AMB Questionnaire RUSSEL-7 Date RUSSEL - 7 assessed: 06/30/25 Feeling nervous, anxious, or on edge: 0 = Not at all Not being able to stop or control worryin = Not at all Worrying too much about different things: 0 = Not at all Trouble relaxin = Not at all Being so restless that it is hard to sit still: 0 = Not at all Becoming easily annoyed or irritable: 0 = Not at all Feeling afraid as if something awful might happen: 0 = Not at all Total RUSSEL-7 score (0-4 normal; 5-9 mild; 10-14 moderate; 15-21 severe): 0 Source: Developed by Drs. Edwin Duran, Rosalinda Haines, Rogers Smart and colleagues, with an educational quinten from [employer]. RUSSEL-7 Assessment Billing RUSSEL-7 Assessment Tool: RUSSEL-7 Assessment 74735 Review of Systems Const Details: Denies chills, Denies fatigue, Denies fever(s), Denies headache(s) and Denies weakness HEENT Denies change in vision, Denies dizziness, Denies headache(s), Denies hearing loss, Denies nasal congestion, Denies sinus pain, Denies sinus pressure and Denies sore throat Card Denies chest pain, Denies lightheadedness, Denies dyspnea and Denies other (palpitations) Resp Denies cough, Denies dyspnea and Denies wheezing GI Denies abdominal pain, Denies melena, Denies hematochezia, Denies change in bowel habits, Denies dyspepsia and Denies nausea Denies hematuria and Denies dysuria Musc Denies abnormal gait, Denies myalgias, Denies arthralgias, Denies numbness and Denies tingling Skin/Breast Denies rash, Denies unusual bruising and Denies wounds Neuro Denies abnormal gait, Denies dizziness, Denies headache(s), Denies memory loss, Denies numbness, Denies Sensory deficit (Neuro), Denies tingling and Denies weakness Psych Denies anxiety, Denies depression and Denies memory loss Endo Denies cold intolerance, Denies fatigue, Denies heat intolerance, Denies polydipsia and Denies polyuria Travon/Lymph Denies easy bleeding and Denies easy bruising Aller/Immun Denies wheezing Physical exam (Primary Care) Vital Signs: Last Vital Signs Temp 97.6 F 06/30/25 15:26 Pulse 62 06/30/25 15:26 Resp 16 06/30/25 15:26 BP 129/69 06/30/25 15:26 Pulse Ox 98 06/30/25 15:26 Oxygen Delivery Method Room Air 06/30/25 15:26 BMI result Body Mass Index 30.5 Tobacco/Smoking Status: Tobacco use Status Tobacco use date assessed 06/30/25 06/30/25 15:25 Patient Tobacco Use Status Former Tobacco user 06/30/25 15:25 Tobacco use type Cigarette 06/30/25 15:25 e-Cigarette/Vaping Use Never Used 06/30/25 15:25 PHQ-9: PHQ-9 Score PHQ-9: Total score 1 06/30/25 16:11 Depression Screening Interpretation: Negative Thrive Assessment: Date of Thrive Assessment Date Thrive assessed 06/30/25 06/30/25 15:30 Currently or been in a relationship where the following occur: No concerns reported Const Other: General: no acute distress, well developed, alert and awake Nutritional Appearance: well nourished Orientation/consciousness: patient oriented x3 [facility] Head: Yes normocephalic and Yes atraumatic Ears: hearing grossly normal bilaterally and TM's normal bilaterally General nose exam: Normal external nose present and Normal nares present Mouth: Normal oral and palatal mucosa present and moist mucous membranes Teeth and gingiva: dentition normal Throat: Yes oropharynx normal Eyes Pupils: Equal, round and reactive pupils present and Pupil accommodation reflex normal EOM: EOMs intact bilaterally Neck Neck: Yes normal visual inspection, Yes no lymphadenopathy and Yes trachea midline Thyroid: Thyroid normal Carotids: no bruits Lymphatic: no lymphadenopathy noted Chest Chest palpation & inspection: normal inspection of the chest Resp Effort & Inspection: normal respiratory effort Auscultation: clear to auscultation bilaterally Cardio Rate: regular rate Rhythm: regular rhythm Heart sounds: S1 normal heart sound present, S2 normal heart sound present, no gallops, no murmurs and no rubs Bruits: no abdominal aortic bruits and no carotid bruits GI Palpation (GI): No Abdominal aortic bruit present, Soft to palpation, nontender, No hepatosplenomegaly present and No Rebound tenderness present Auscultation: normal bowel sounds General: Yes no CVA tenderness Back/Spine/Pelvis Back: no CVA tenderness Cervical Spine: cervical ROM normal and No Cervical spine tenderness Thoracic/Lumbar Spine: thoraco-lumbar ROM normal, No pain with thoraco-lumbar ROM, No thoracic spinal tenderness and No lumbar spinal tenderness Skin General: warm and dry. Normal skin color. Normal skin turgor Lesions: no lesions Rashes: no rashes Trauma: no lacerations or abrasions Wounds: no wounds Nails: normal Neuro General: patient oriented x3, gait normal and CN's II-XI intact bilaterally Cranial nerves: Yes Equal, round and reactive pupils present Cognition (Neuro): normal cognition Gait exam (Neuro): Normal gait present Motor exam (neuro): 5/5 motor strength present throughout Sensory Exam: No Sensory deficit (Neuro) Deep tendon reflexes (DTR's): Right patellar reflex intensity grade: 2+ and Left patellar reflex intensity grade: 2+ Extrem General: Yes normal to inspection, No edema and No calf tenderness Psych Appearance: grossly normal Affect: normal affect Attitude: cooperative Thought process: Normal thought process present Immunizations Boostrix Tdap 2.5 Lf unit-8 mcg-5 Lf/0.5 mL intramuscular syringe Performing Provider: Agatha Rascon CNP Performing Location: [facility] Family Medicine Administered by: Amrit Howard RN on 06/30/25 16:10 Dose Route Admin Location Dispensed Lot Number Expiration Date NDC Tank Assembler 0.5 mL IM Left Deltoid 0.5 mL [id number] 08/12/27 68885-539-47 [employer] Total Dispensed Waste 0.5 mL 0 % VIS Given Date VIS Provided VIS Publication Date 06/30/25 Single Vaccine 21 Eligibility Eligibility Date Funding Source Not [facility] Eligible 06/30/25 Private Coding Level of Care Code Est Pt Prev Care 40-64y(94530) Diagnoses Normal physical examination, routine Z00.00 Hypertension, unspecified type I10 Hypertension type: unspecified Vaccine counseling Z71.85 Colon cancer screening Z12.11 Laboratory tests ordered as part of a complete physical exam (CPE) Z00.00 Additional Codes RUSSEL-7 Assessment Billing - RUSSEL-7 Assessment Tool: RUSSEL-7 Assessment 00859 ([id number]) PHQ-9 - 15378 - PHQ-9 Billing: Yes ([id number]) Assessment & Plan Assessment & Plan (1) Normal physical examination, routine: Code(s): Z00.00 - Encounter for general adult medical examination without abnormal findings Category: Medical Plan: No significant functional limitation noted. Continue current treatment regimen. Healthy diet and routine exercise encouraged. Perform lab work and follow-up for telehealth visit for labs review in 2-4 weeks. Return sooner with symptoms or concerns. Verbalized understanding and agreed with the plan. (2) High blood pressure: Code(s): I10 - Essential (primary) hypertension Category: Medical Qualifiers: Hypertension type: unspecified Qualified Code(s): I10 - Essential (primary) hypertension Plan: Blood pressure is 129/69, within goal of less than 140/90. Continue current treatment regimen. Low-sodium diet encouraged. Will continue to monitor. Verbalized understanding and agreed with the plan. (3) Vaccine counseling: Code(s): Z71.85 - Encounter for immunization safety counseling Category: Medical Plan: He has never been vaccinated for shingles. Instructed on importance of vaccination and encouraged to get vaccinated for shingles. He may get the vaccine at the local pharmacy. Verbalized understanding and agreed with the plan. (4) Colon cancer screening: Code(s): Z12.11 - Encounter for screening for malignant neoplasm of colon Category: Medical Plan: Last colonoscopy was 10 years ago: normal. Referred to [facility] gastroenterology for a colonoscopy. (5) Laboratory tests ordered as part of a complete physical exam (CPE): Code(s): Z00.00 - Encounter for general adult medical examination without abnormal findings Category: Medical Plan: Fasting labs ordered as part of a complete physical exam. Advised to fast for at least 10 hours before getting labs drawn. May drink water Verbalized understanding and agreed with treatment plan. Orders: Orders Complete Blood Count Auto Diff Today Z00.00 - Encounter for general adult medical examination without abnormal findings Lipid Panel Today Z00.00 - Encounter for general adult medical examination without abnormal findings PSA, Ultra Sensitive Today Z00.00 - Encounter for general adult medical examination without abnormal findings TSH reflex Free T4 Today Z00.00 - Encounter for general adult medical examination without abnormal findings Vitamin D 25-OH Total Today Z00.00 - Encounter for general adult medical examination without abnormal findings Comprehensive [facility]. Panel Fast Today Z00.00 - Encounter for general adult medical examination without abnormal findings Microalbumin, Random (w Creat) Today Z00.00 - Encounter for general adult medical examination without abnormal findings UA CC w/rflx Micro + Cult Today Z00.00 - Encounter for general adult medical examination without abnormal findings TDaP Immunization Today Z23 - Encounter for immunization Referrals Gastroenterology Referral Z12.11 - Encounter for screening for malignant neoplasm of colon
[2025-06-30 15:26] VITALS: BP 129/69; PULSE 62; RESP 16; TEMP 36.4; O2SAT 98; BMI 30.5
--- OUTSIDE RECORDS SUMMARY | 2025-06-30 18:25 | XMS_ITS | Clinical Summary ---
Author Organization [facility] Address [address] [place] [address] Care Team Providers Care Commercial [employer] Professional Name Role Phone Unavailable Primary Care Provider [...]
--- OUTSIDE RECORDS SUMMARY | 2025-06-30 18:25 | XMS_ITS | Clinical Summary ---
Author Organization [employer] Address [address] [facility] [address] [place] [address] Care Team Providers Care Real Estate Coordinator Name Role Phone Araceli Ward Primary Care Provider Unavailable Zakiya Pacheco Unavailable Allergies No known active allergies Medications [...] 08/09/2023 08/09/2023 Insulin resistance 08/09/2023 08/09/2023 Immunizations Immunization Administration Dates Next Due Hep B, adult [...] Screening 1966 SDOH Screening 1966 Sigmoidoscopy 1966 Disability Screening 1966 Alcohol/Substance Use Screening 1978 Hepatitis C Screening 1984 Pneumococcal Vaccine: 50+ Years (1 of 1 - PCV) 2016 Zoster Vaccines (1 of 2) 2016 DTaP/Tdap/Td Vaccines (2 - T d or Tdap) 03/25/2023 03/25/2013 Tobacco Screening 03/26/2024 03/26/2023 COVID-19 Vaccine (2 - 2024-2 6 season) 2025 04/12/2021 Influenza Vaccine (#1) 2025 09/24/2018 Lipid Panel 07/06/2025 07/06/2020 Colonoscopy 01/21/2026 [...] patient's age to complete this topic Meningococcal B Vaccine Aged Out No l onger eligible based on patient's age to complete [...] 07/06/2020 11:3 7 AM EDT Araceli Ward 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 (01/22/2016 12:00 AM EDT) Anatomical Region Laterality Modality Endoscopy 01/22/2016 Narrative 01/22/2016 12:00 AM EDT Refer to Fove for result details Legacy Procedure: COLONOSCOPY: [facility] Procedure Note Provider, Fabien, - 02/16/2023 Refer to [facility] for result details Legacy Procedure: COLONOSCOPY: [facility] Historical Provider ENDOSCOPY PROCEDURE ORDER BAO Final Result from Last 3 Months or Most Recently Relevant to Health Maintenance Insurance [employer] Care Teams Real Estate Coordinator Relationship Specialty Start Date End Date Araceli Ward FNP PCP - General Family Medicine 02/20/23 Zakiya Pacheco Community Health Worker 02/20/23
== END 2025-06-30 16:09 | disposition home or self-care (01) ==
LOC: HO.HMCFM 15:20
PROVIDERS: PCP Nurse Practitioner Family; Visit Provider Nurse Practitioner Family
DX: Z00.00 Encounter for general adult medical examination without abnormal findings (principal); I10 Essential (primary) hypertension; Z71.85 Encounter for immunization safety counseling; Z12.11 Encounter for screening for malignant neoplasm of colon; Z23 Encounter for immunization

== ENCOUNTER → 2025-06-30 15:19 | Outpatient (BNVA) | payer BC, SELFPAY | PROVIDERS: Visit Provider Nurse Practitioner Family | DX: Z00.00 Encounter for general adult medical examination without abnormal findings (principal); I10 Essential (primary) hypertension; Z23 Encounter for immunization; Z71.85 Encounter for immunization safety counseling | CPT/HCPCS: 90471; 90715; 96127 ==

== ENCOUNTER 2025-08-21 15:11 | Outpatient (REF) | payer BC, SELFPAY ==
[2025-08-21 17:31] LABS: MANUAL DIFF FLAG NO
[2025-08-21 17:47] LABS: Hematocrit 41.1 % (42.0-52.0); Hemoglobin 13.9 g/dl (14.0-18.0); Imm Gran Abs Auto 0.02 X10*3/uL (0.00-0.03); Imm Gran Pct Auto 0.2 % (0.0-0.4); Lymphocytes Absolute Auto 3.4 X10*3/uL (1.2-4.9); Mean Corpuscular HGB Conc 33.8 g/dl (31.0-36.0); Mean Corpuscular Hemoglobin 31.5 pg (27.0-33.0); Mean Corpuscular Volume 93.2 fL (80.0-98.0); NRBC Abs Auto 0.000 X10*3/uL (0.0-0.012); NRBC Pct Auto 0.0 /100WBC (0.0-0.2); Platelet Count 301 X10*3/uL (160-400); Red Blood Count 4.41 X10*6/uL (4.60-5.80); White Blood Count 9.9 X10*3/uL (4.8-10.8)
[2025-08-21 17:47] LABS: Appearance Urine Clear; Glucose Urine UA Negative (Negative); PH 6.5 (5.0-9.0); Specific Gravity - Urine <= 1.005 (1.005-1.025)
--- OUTSIDE RECORDS SUMMARY | 2025-08-21 17:56 | XMS_ITS | Clinical Summary ---
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 ORDERABLES F inal Result [facility] [address] * COLONOSCOPY: [facility] (01/22/2016 12:00 AM EDT) Anatomical Region Laterality Modality Endoscopy 01/22/2016 Narrative 01/22/2016 12:00 AM EDT Refer to [facility] for result details Legacy Procedure: COLONOSCOPY: [facility] Procedure Note Provider, MD Fabien - 02/16/2023 Refer to Fove for result details Legacy Procedure: COLONOSCOPY: [facility] Historical Provider ENDOSCOPY PROCEDURE ORDER BAO Final Result from Last 3 Months or Most Recently Relevant to Health Maintenance Insurance [employer] Care Teams Supervisor Shaving And Splitting Relationship Specialty Start Date End Date PcpBrian Unassigned PCP - General Family Medicine 08/12/25 Zakiya Pacheco Community Health Worker 02/20/23
--- OUTSIDE RECORDS SUMMARY | 2025-08-21 17:56 | XMS_ITS | Clinical Summary ---
Author Organization [facility] Address [address] [place] [address] Care Team Providers Care Per Diem Physical Therapist Name Role Phone Unavailable Primary Care Provider [...]
[2025-08-21 18:06] LABS: Alanine Aminotransferase 29 U/L (0-40); Albumin Level 4.8 g/dL (3.5-5.0); Alkaline Phosphatase 49 U/L (39-117); Anion Gap 11 (12-20); Aspartate Amino Transferase 29 U/L (5-37); Blood Urea Nitrogen 22 mg/dL (9-16); Calcium 9.4 mg/dL (8.4-10.2); Carbon Dioxide 27 mmol/L (22-29); Chloride 103 mmol/L (96-108); Cholesterol 105 mg/dL (<200); Estimated Glomerular Filt Rate > 60; HDL Cholesterol 38 mg/dL (>40); Potassium 3.9 mmol/L (3.3-5.1); Sodium 137 mmol/L (135-145); Total Protein 6.8 g/dL (6.5-8.0); Triglycerides 53 mg/dL (<150); Uric Acid 7.0 mg/dL (3.4-7.0)
[2025-08-29 21:09] LABS: PSA, Ultra Sensitive 1.31 ng/mL
== END 2025-08-21 15:12 | disposition home or self-care (01) ==
LOC: HO.WFDLDS 15:11
PROVIDERS: Visit Provider Nurse Practitioner Family
DX: Z00.00 Encounter for general adult medical examination without abnormal findings (principal); M25.572 Pain in left ankle and joints of left foot; Z13.6 Encounter for screening for cardiovascular disorders; Z12.5 Encounter for screening for malignant neoplasm of prostate; Z13.29 Encounter for screening for other suspected endocrine disorder; Z13.21 Encounter for screening for nutritional disorder
CPT/HCPCS: 36415; 80053; 80061; 81003; 82306; 82570; 84153; 84443; 84550; 85025